=== PATIENT | female | born 1980 | race Caucasian/White ===

== ENCOUNTER 2017-06-16 12:15 | Emergency (ER) | payer MEDICAID, SELFPAY ==
[2017-06-16 12:17] VITALS: BP 134/80; PULSE 115; RESP 20; TEMP 36.6; O2SAT 100; BMI 19.3
--- NOTE | 2017-06-16 12:49 | ED.VISSUMM ---
- ER Visit Summary Date of Service: 06/16/17 Chief Complaint: Back pain History of Present Illness: The patient is a 37 F who presents to the emergency department with back pain. The patient has had the same pain for the past 3 months. She has been seeing neurology. She did have outpatient MRIs of the cervical spine, thoracic spine, and lumbar spine. She states that she is currently on Neurontin, tizanidine, and temazepam. She feels like it is not helping the pain. She has had a persistent burning pain across her back. She states it radiates everywhere. She has had no problems with bowel or bladder. She denies any fevers or chills. She denies any new trauma. She states that she is frustrated because she cannot get any answers and cannot find anything that helps her pain. Physical Examination: Afebrile, vitals unremarkable. Well-appearing female no acute distress. Head is normocephalic, atraumatic. Pupil's equal round reactive, extraocular muscles intact. Neck supple. Heart regular rate and rhythm. Lungs clear, chest nontender. Abdomen soft, nontender, nondistended. No pulsatile mass. Patient has paraspinal tenderness in the lumbar and thoracic area, but no bony tenderness. Straight leg raise is negative bilaterally. 2+ symmetric lower extremity pulses. 2+ reflexes both upper and lower extremities. No clonus. No weakness of dorsiflexion, plantar flexion, or extensor hallucis longus bilaterally. Test Results: [] Emergency Department Course and Treatment: I did review the patient's outpatient MRIs. They are relatively unremarkable. She has been dealing with this pain for months now. She is basically maxed out on Neurontin. They have tried multiple other medications which she has not found any improvement with. She has no red flag symptoms. She describes a diffuse burning across her back which is her normal pain. She states that it has been out of control. I did not feel that repeat imaging or lab work would be necessary as this is similar symptoms the patient has had since before January 2017. She has a benign examination with no evidence of discitis, epidural abscess, cauda equina, or other dangerous process. The patient was treated with Toradol and Norflex with some improvement. She was still having pain. She was given oral [place]. I did review [facility] was unremarkable for opiate analgesics. I will give the patient 2 days of acute pain control. I did veterans rehabilitation counselor her she needs to discuss with neurology the next step in the workup and control of her symptoms. The patient will be discharged home. Treatment Plan: [] Disposition: [] Impression: 1. Thoracic radiculitis 2. Exacerbation of chronic pain This note was generated with [employer] dictation software. It may contain incorrect words, spelling, and punctuation that were not noted in review of the chart prior to signing ED Disposition - Plan for ED Patient: Chief Complaint: Back Instructions: ED Spasm Back No Trauma Prescriptions: Hydrocodone Bitart/Apap 5-325 [[place] 5/325] 1 tab PO Q6H PRN PRN 3 Days #12 tab PRN Reason: Pain Docusate Sodium [Colace] 100 mg PO DAILY #20 cap Referrals: Azeem Woodruff III, MD [Primary Care Provider] -
[2017-06-16] MEDS: Ketorolac 30 MG/ML Syringe IM (13:07)
[2017-06-16] MEDS: Orphenadrine 60 MG/2 ML Ampul IM (13:07)
[2017-06-16] MEDS: HYDROcodone Bitartrate/Apap 5/325 Tablet PO (13:33)
[2017-06-16 13:56] VITALS: BP 137/83; PULSE 97; RESP 16; O2SAT 99
== END 2017-06-16 13:58 | disposition home or self-care (01) ==
LOC: ED 12:38
PROVIDERS: Emergency Provider Emergency Medicine; Family Provider Family Medicine; PCP Family Medicine
DX: M54.14 Radiculopathy, thoracic region (principal); G89.29 Other chronic pain; Z87.891 Personal history of nicotine dependence
CPT/HCPCS: 99283

== ENCOUNTER 2018-06-27 05:05 | Emergency (ER) | payer MEDICAID, SELFPAY ==
[2018-06-27 05:06] VITALS: BP 112/79; PULSE 74; RESP 18; TEMP 36.7; O2SAT 100; BMI 21.2
--- NOTE | 2018-06-27 05:39 | ED.VISSUMM ---
- ER Visit Summary Date of Service: 06/27/18 Chief Complaint: Eye pain History of Present Illness: The patient is a 38 F who presents with right eye pain. She had fallen asleep. She woke up may be 30 minutes later with sudden severe right eye pain which she describes as burning and stabbing. No history of injury. She does not work glasses or contact lenses. She states that she had a foreign body sensation and she was trying to irrigate her eye out at home. No recent illness. No fever chest pain shortness of breath vomiting diarrhea Physical Examination: Afebrile vitals are normal Went into the room the patient was sitting in a darkened room covering her right eye. She complains of worsening pain when she attempts to open it. Pupils are equally round and reactive to light normal accommodation Extraocular motion intact no palsies Right eyelid everted no foreign body visualized Diffuse conjunctival injection Slit-lamp examination with tetracaine and fluorescein does show a large linear corneal abrasion horizontally across the lower cornea does involve the visual axis over the pupil Test Results: Slit-lamp examination as above Emergency Department Course and Treatment: Eyelids were everted no foreign body. Tetracaine instilled in the right eye with marked improvement of symptoms. Slit-lamp examination does reveal a corneal abrasion. She was given ophthalmic bacitracin here and instructed on its use. She was given a [place] for acute pain control as well as a prescription for short course of the same. She was referred to ophthalmology for follow-up and understands to return for new or worsening symptoms. Patient discharged. Treatment Plan: [] Disposition: Discharge Impression: Corneal abrasion This note was generated with [employer] dictation software. It may contain incorrect words, spelling, and punctuation that were not noted in review of the chart prior to signing ED Disposition - Plan for ED Patient: Referrals: Azeem Woodruff III, MD [Primary Care Provider] -
--- NOTE | 2018-06-27 05:42 | ED.DCSUM_ITS ---
- ER Visit Summary Date of Service: 06/27/18 Chief Complaint: Eye pain History of Present Illness: The patient is a 38 F who presents with right eye pain. She had fallen asleep. She woke up may be 30 minutes later with sudden severe right eye pain which she describes as burning and stabbing. No history o f injury. She does not work glasses or contact lenses. She states that she had a foreign body sensation and she was trying to irrigate her eye out at home. No recent illness. No fever chest pain shortness of breath vomiting diarrhea Physical Examination: Afebrile vitals are normal Went into the room the patient was sitting in a darkened room covering her right eye. She complains of worsening pain when she attempts to open it. Pupils are equally round and reactive to light normal accommodation Extraocular motion intact no palsies Right eyelid everted no foreign body visualized Diffuse conjunctival injection Slit-lamp examination with tetracaine and fluorescein does show a large linear corneal abrasion horizontally across the lower cornea does involve the visual axis over the pupil Test Results: Slit-lamp examination as above Emergency Department Course and Treatment: Eyelids were everted no foreign body. Tetracaine instilled in the right eye with marked improvement of symptoms. Slit-lamp examination does reveal a corneal abrasion. She was given ophthalmic bacitracin here and instructed on its use. She was given a [place] for acute pain control as well as a prescription for short course of the same. She was referred to ophthalmology for follow-up and understands to return for new or worsening symptoms. Patient discharged. Treatment Plan: [] Disposition: Discharge Impression: Corneal abrasion This note was generated with [employer] dictation software. It may contain incorrect words, spelling, and punctuation that were not noted in review of the chart prior to signing ED Disposition - Plan for ED Patient: Referrals: Azeem Woodruff III, MD [Primary Care Provider] -
--- NOTE | 2018-06-27 05:42 | ED.DEP ---
ED Disposition - Plan for ED Patient: Instructions: ED Eye Injury Corneal Abrasion Prescriptions: Hydrocodone Bitart/Apap 5-325 [[place] 5MG-325MG] 1 tab PO Q6H PRN PRN 3 Days #10 tab PRN Reason: Pain Referrals: Azeem Woodruff III, MD [Primary Care Provider] - Josue Lee MD [STAFF PHYSICIAN] -
[2018-06-27] MEDS: Fluorescein 1 MG STRIP 1 STRIP RIGHT EYE (05:49)
[2018-06-27] MEDS: Tetracaine 0.5% Ophthalmic Bottle 1 DRP RIGHT EYE (05:49)
[2018-06-27] MEDS: HYDROcodone Bitartrate/Apap 5/325 Tablet PO (05:50)
[2018-06-27 05:51] VITALS: BP 115/65; PULSE 67; RESP 16; O2SAT 98
== END 2018-06-27 05:59 | disposition home or self-care (01) ==
PROVIDERS: Emergency Provider Emergency Medicine; Family Provider Family Medicine; PCP Family Medicine
DX: S05.01XA Injury of conjunctiva and corneal abrasion without foreign body, right eye, initial encounter (principal); X58.XXXA Exposure to other specified factors, initial encounter; Y93.9 Activity, unspecified; Y92.89 Other specified places as the place of occurrence of the external cause; Y99.8 Other external cause status; M79.7 Fibromyalgia; G89.29 Other chronic pain; Z72.0 Tobacco use
CPT/HCPCS: 99284

== ENCOUNTER 2021-05-21 16:43 | Emergency (ER) | payer MEDICAID, SELFPAY ==
[2021-05-21 16:43] VITALS: BP 142/94; PULSE 77; RESP 15; TEMP 36; O2SAT 96; BMI 27.6
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
[2021-05-21] MEDS: Ondansetron 4 MG/2 ML Vial IV (17:37)
[2021-05-21] MEDS: Morphine 4 MG/ML Syringe IV (17:37)
[2021-05-21 18:05] LABS: Absolute Lymphocyte Count 1.95 X10^3/uL (0.83-4.51); Absolute Neutrophil Count 5.7 X10^3/uL (2.0-7.7); Basophil# 0.03 X10^3/uL; Basophil% 0.4 % (0-1); Eosinophil# 0.11 X10^3/uL; Eosinophils% 1.3 % (0-5); Hemoglobin 14.9 g/dL (12.0-15.0); Lymphocyte # 1.95 X10^3/ul (0.83-4.51); Lymphocyte % 23.3 % (19-41); Mean Corp Hgb Conc 33.9 g/dL (32-36); Mean Corpuscular Volume 94.4 fL (81-99); Mean Platelet Vol. 10.4 fl (6.2-12.0); Monocyte# 0.56 X10^3/uL; Monocyte% 6.7 % (0-10); NRBC Flagged by Analyzer 0 % (0-5); Neutrophil % 68.1 % (47-70); Platelet Count 337 K/mm3 (150-450); RBC Distribution Width CV 12.9 % (11.6-14.6); RBC Distribution Width SD 44.5 fl (35.1-43.9); Red Blood Count 4.66 M/mm3 (4.2-5.4); White Blood Count 8.4 K/mm3 (4.4-11.0)
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
[2021-05-21 18:25] LABS: Anion Gap 5 (5-15); BUN 12 mg/dL (7-18); BUN/Creat Ratio 14.5 RATIO (10-20); Calcium,Total 9.5 mg/dL (8.5-10.1); Chloride 105 mmol/L (98-107); Creatinine, Serum 0.83 mg/dL (0.55-1.02); EST Glomerular Filtration Rate 80 mL/min (>60); Est Glom Filt Rate - Afr Amer 97 mL/min (>60); Estimated Creatinine Clearance 86.62 ml/min; Glucose 83 mg/dL (74-106); Potassium 3.8 mmol/L (3.5-5.1); Sodium Level 138 mmol/L (136-145)
[2021-05-21 18:41] VITALS: BP 135/90; PULSE 89; RESP 15; O2SAT 99
== END 2021-05-21 18:42 | disposition home or self-care (01) ==
PROVIDERS: Emergency Provider Emergency Medicine; Visit Provider Emergency Medicine
DX: S29.9XXA Unspecified injury of thorax, initial encounter (principal); S39.91XA Unspecified injury of abdomen, initial encounter; V43.53XA Car driver injured in collision with pick-up truck in traffic accident, initial encounter; Y93.9 Activity, unspecified; Y92.9 Unspecified place or not applicable; F17.210 Nicotine dependence, cigarettes, uncomplicated; M79.7 Fibromyalgia; Z79.899 Other long term (current) drug therapy
CPT/HCPCS: 74177; 80048; 85025; 93005; 96374; 96375; 99283; Q9967; A4216; J2405

== ENCOUNTER 2021-05-27 13:59 | Emergency (ER) | payer MEDICAID, SELFPAY ==
[2021-05-27 14:00] VITALS: BP 129/98; PULSE 71; RESP 21; TEMP 36.7; O2SAT 98; BMI 27.8
--- NOTE | 2021-05-27 15:54 | RAD_ITS ---
STUDY: X-RAY - ABDOMEN/PELVIS REASON FOR EXAM: Female, 41 years old. Constipation. No bowel movement for 1 week. TECHNIQUE: Two AP supine views of the abdomen and pelvis. COMPARISON: None. FINDINGS: Normal visualized lung bases. There is an unremarkable bowel gas pattern. There is no demonstrated free abdominal air. Question hepatomegaly. The splenic and renal contours appear normal. Normal soft tissue structures. There is a mild levoscoliosis of the lumbar spine. RAD/Abdomen Single View IMPRESSION: 1. No evidence of acute intra-abdominal process. 2. Question hepatomegaly. Electronically Signed: Landen Carlson DO at 16:25 EST Tel [phone], Service support ,
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
== END 2021-05-27 17:17 | disposition home or self-care (01) ==
PROVIDERS: Emergency Provider Emergency Medicine; Visit Provider Emergency Medicine
DX: K59.00 Constipation, unspecified (principal); F17.210 Nicotine dependence, cigarettes, uncomplicated
CPT/HCPCS: 74018; 99284

== ENCOUNTER 2024-08-17 12:43 | Inpatient (IN) | payer SELFPAY ==
[2024-08-17] VITALS (27 sets, daily range): BP systolic 86–158; BP diastolic 54–145; PULSE 49–69; RESP 14–28; TEMP 34.7–36.4; O2SAT 96–100; BMI 33.0; BMI 31.2
[2024-08-17] MEDS: Naloxone 2 MG/2 ML Syringe IV (12:47)
--- NOTE | 2024-08-17 12:50 | EX.ED.DYSGE1 ---
HPI History of Present Illness Chief Complaint: Overdose Informant: family and EMS Narrative Narrative: 44-year-old female presenting via EMS with the report of intentional drug overdose. EMS was called to the house after family received some text messages concerning for mental health and potential for suicidal ideation. They found the patient unresponsive on the floor with multiple medications around her. They brought some medications with her which include trazodone tizanidine and [place]. It is unclear of how much she took. There is a report of potential glass of wine. Family notes that she has had some lows recently but has been refusing to speak with anybody about her mental health. Patient herself cannot provide any meaningful information. EMS notes that the text of family was about an hour before arriving here in the department. [facility] Medical History Suicide attempt Depression Anxiety Home Medications ?Medication ?Instructions ?Recorded ?Last Taken ?Type tizanidine 4 mg tablet (Zanaflex) 4 mg PO Q8H PRN PRN Pain 11/03/13 11/13/15 History gabapentin 300 mg capsule 900 cap PO TID 10/24/15 11/13/15 History temazepam 30 mg capsule 30 mg PO QHS PRN PRN INSOMNIA, 10/24/15 11/13/15 History SLEEP acetaminophen 500 mg tablet 1,000 mg (2 x 500 mg) PO Q8 08/11/16 Unknown Rx Allergy/AdvReac Type Severity Reaction Status Date / Time duloxetine (From Cymbalta) Allergy Nausea Verified 05/27/21 16:15 Surgical History History of arthroscopy of right knee History of ankle surgery Social History household members: significant other and other details: States significant other is status postvasectomy Smoking Status: Smoker, status unknown substance use type: does not use ROS ROS ED Review of Systems ROS Unobtainable: due to mental status EXAM Physical Exam Const Vital Signs: 08/17/24 12:44 08/17/24 13:05 08/17/24 13:10 Temperature 96.9 F L Temperature Source Temporal Pulse Rate 53 L 61 Respiratory Rate 18 Respiratory Effort Mechanically Ventilated Respiratory Depth Normal Respiratory Pattern Normal Blood Pressure 86/54 L Blood Pressure Mean 64 Pulse Ox 96 100 99 Oxygen Delivery Method Room Air Mechanical Ventilator Fraction of Inspired Oxygen (FIO2) 75 08/17/24 13:10 08/17/24 13:14 08/17/24 13:20 Temperature 96 F L Temperature Source Core Pulse Rate 61 62 64 Respiratory Rate 14 14 17 Respiratory Effort Respiratory Depth Respiratory Pattern Blood Pressure 95/72 125/91 H Blood Pressure Mean 79 102 Pulse Ox 99 100 100 Oxygen Delivery Method Mechanical Ventilator Mechanical Ventilator Fraction of Inspired Oxygen (FIO2) 75 08/17/24 13:30 08/17/24 14:00 08/17/24 14:18 Temperature Temperature Source Pulse Rate 65 57 L 61 Respiratory Rate 15 26 H 28 H Respiratory Effort Respiratory Depth Respiratory Pattern Blood Pressure 104/85 H 158/145 H 124/91 H Blood Pressure Mean 91 149 102 Pulse Ox 100 98 99 Oxygen Delivery Method Mechanical Ventilator Fraction of Inspired Oxygen (FIO2) 08/17/24 14:29 Temperature 97.6 F L Temperature Source Pulse Rate 69 Respiratory Rate 28 H Respiratory Effort Respiratory Depth Respiratory Pattern Blood Pressure 115/90 H Blood Pressure Mean 98 Pulse Ox 98 Oxygen Delivery Method Fraction of Inspired Oxygen (FIO2) Positive well nourished and well developed General Appearance ED: well developed HEENT Reports normocephalic, head/scalp atraumatic and moist mucous membranes Eyes EOMs intact bilaterally Eyes Narrative: Pupils are 2 mm bilaterally. There is a gag reflex though delayed and blunted. Neck no lymphadenopathy, supple and no JVD Resp normal respiratory effort and clear to auscultation bilaterally Cardio regular rate, regular rhythm and no murmurs Rate: bradycardia GI normal to inspection, nondistended, normoactive bowel sounds and non-tender Palpation: soft Back/Spine no CVA tenderness and normal ROM Extremity normal to inspection General Extremety ED: Negative for edema General Extremity: Negative for edema Neuro [place] Coma Scale: document GCS findings To Pain Localizes to Pain None 8 Psych Psych Narrative: Unable to assess Mood & Affect: tearful Skin no rashes or lesions noted and no wounds MDM MDM MDM Narrative Medical decision making narrative: Differential diagnosis includes but not limited to suicide attempt intentional drug overdose metabolic acidosis alkalosis drug-induced hypotension drug-induced bradycardia hypercarbia hypoxia anoxic brain injury aspiration toxic ingestion acute kidney injury After the initial examination and no response to administered IV Narcan decision was made to intubate the patient for airway protection based on the GCS of 8 and blunted gag reflex. Patient underwent successful RSI using etomidate and rocuronium placing a 7-1/2 endotracheal tube on the first attempt without any difficulty. Equal breath sounds bilaterally good color change on capnography. OG tube was placed. Because of the hypotension and concern for further hypotension with sedation for mechanical ventilation a right IJ central line was placed using ultrasound guidance and sterile condition using the modified Salinger technique. This was obtained in the first attempt without any difficulty. Sutured in place. Dark red nonpulsatile blood was obtained. Good push pull. My independent interpretation of the postprocedural x-ray is right mainstem intubation. Adequate placement of central line with no pneumothorax. Endotracheal tube was pulled back by 3 cm Initial ABG shows a pH of 7.33 PaCO2 36.1 PaO2 of 210.1 HCO3 19.3 EKG is a sinus bradycardia at a rate of 51 with some QT prolongation. Basic blood work shows a hemoglobin 11.9 normal creatinine normal sodium and potassium. Lactic acid is elevated 2.7 alcohol level is 181. Urine toxicology positive for cannabinoids test is negative normal LFTs. CT brain shows no acute findings. Patient was given propofol for sedation. Family was updated several times by this physician both in the waiting room and at the bedside. Plan of care will be admission to the ICU. History & Record Review Discussion w/independent historian: EMS personnel, Family and Other (Police) Lab Data Attestation: I reviewed the patient's lab results. Labs: Laboratory Results - last 24 hr 08/17/24 08/17/24 08/17/24 12:51 13:15 13:28 WBC 6.4 RBC 3.75 L Hgb 11.9 L Hct 35.3 L MCV 94.1 MCH 31.7 MCHC 33.7 RDW Std Deviation 43.3 RDW Coeff of Adrianna 12.6 Plt Count 299 MPV 11.0 Immature Gran % (Auto) 0.300 Neut % (Auto) 68.7 Lymph % (Auto) 22.4 [place] % (Auto) 6.1 Eos % (Auto) 2.2 Baso % (Auto) 0.3 Absolute Neuts (auto) 4.4 Absolute Lymphs (auto) 1.43 Nucleated RBC % 0 PT Cancelled INR Cancelled APTT Cancelled Sodium 140 Potassium 3.7 Chloride 109 H Carbon Dioxide 18.6 L Anion Gap 13 BUN 10 Creatinine 0.59 L Estim Creat Clear Calc 108.39 Est GFR (MDRD) Non-Af 113 BUN/Creatinine Ratio 16.8 Glucose 106 H Lactic Acid 2.7 H* Calcium 8.2 Total Bilirubin 0.21 Direct Bilirubin < 0.08 AST 18 ALT 6 Alkaline Phosphatase 34 L Total Creatine Kinase 44 Troponin T High Sens < 6 Total Protein 6.1 Albumin 3.7 Globulin 2.4 Triglycerides 315 H Lipase 22 Serum , Qual NEGATIVE Urine Color Straw Urine Clarity Clear Urine pH 6.0 Ur Specific [place] 1.015 Urine Protein 15 H Urine Glucose (UA) Normal Urine Ketones Negative Urine Occult Blood 10 H Urine Nitrite Negative Urine Bilirubin Negative Urine Urobilinogen Normal Ur Leukocyte Esterase Negative Urine RBC 0-5 SEEN Urine WBC 0 SEEN Ur Squamous Epith Cells 0 SEEN Urine Bacteria 0 SEEN Urine Mucus 0 SEEN Salicylates < 0.5 L Urine Opiates Screen NEGATIVE U Buprenorphine Qual NEGATIVE Ur Oxycodone Screen NEGATIVE Urine Methadone Screen NEGATIVE Urine Fentanyl Screen NEGATIVE Acetaminophen < 5.0 L Ur Barbiturates Screen NEGATIVE Ur Phencyclidine Scrn NEGATIVE Ur Amphetamines Screen NEGATIVE U Benzodiazepines Scrn NEGATIVE Urine Cocaine Screen NEGATIVE U Cannabinoids Screen PRESUMPTIVE POSITIVE Ethyl Alcohol 181.0 H ABG Data ABG results: ABG 08/17/24 13:23 Specimen Type ART Sample Site L Radial pH 7.34 L Bicarbonate Actual 19.3 L Total CO2 20 Base Excess -7 L O2 Saturation 100 H O2 % 50.0 ABG pCO2 36.1 ABG pO2 210 H Jorge Test Positive Respiration Rate 14 O2 Delivery Device ET Tube Vent Mode AC Tidal Volume 450.0 POC PEEP 5 Radiography Diagnostic Testing: Clinical Impression(s) from Imaging Studies Chest X-Ray 08/17/24 13:25 IMPRESSION: 1. ET tube is in the right main bronchus. Retraction is recommended. 2. Pulmonary venous congestion. Reading Location: [facility] Brain CT 08/17/24 13:42 IMPRESSION: No acute intracranial hemorrhage, midline shift or mass effect. If symptoms persist, further evaluation with MRI is recommended. Reading Location: [facility] EKG Initial EKG: Attestation: I personally reviewed and interpreted this EKG as follows: Comments: Sinus bradycardia ventricular rate of 51 bpm Management Discussion w/another healthcare provider: Hospitalist (Dr Fontanez) Critical Care Time Critical Care Time: Yes Critical care time (excluding procedures): 30-74 minutes (35), Including time spent:, Discussing w/Patient &/or Family/Offset Platemaker, Discussing w/Consultants, Arranging Admission or Transfer and Performing Direct Patient Care at Bedside Discharge Plan Dx/Rx/DC Orders Clinical Impression: Drug overdose, intentional, Respiratory failure, Acute hypotension, Alcohol intoxication Disposition Disposition: Acute Care Hospital [facility] Discharge Date/Time: 08/17/24 15:18
--- NOTE | 2024-08-17 12:51 | EKG12_ITS ---
Test Reason : OD Blood Pressure : */* mmHG Vent. Rate : 51 BPM Atrial Rate : 51 BPM P-R Int : 162 ms QRS Dur : 82 ms QT Int : 496 ms P-R-T Axes : 39 34 30 degrees QTcB Int : 457 ms Sinus bradycardia Otherwise normal ECG Confirmed by Lonny Slater ([id number]), international editorial producer MARY PEARL ([id number]) on 08/20/2024 6:50:50 AM Referred By: Confirmed By: Lonny Slater
[2024-08-17] MEDS: 0.9% Normal Saline (1000mL) 1,000 ML 1000 ML IV (12:55)
[2024-08-17] MEDS: Etomidate 20 MG/10 ML Vial IV (13:01)
[2024-08-17] MEDS: Rocuronium Bromide 50 MG/5 ML Vial IV (13:02)
[2024-08-17] MEDS: Propofol 10MG/Ml 1,000 MG/100 ML Bottle 4.5 MG CONT INF (13:08)
[2024-08-17] MEDS: 0.9% Normal Saline (1000mL) 1,000 ML 250 ML IV (13:19)
--- NOTE | 2024-08-17 13:25 | RAD_ITS ---
EXAM: XR Chest, 1 View CLINICAL INDICATION: INTUBATION TECHNIQUE: Frontal view of the chest. COMPARISON: No relevant prior studies available. FINDINGS: LUNGS AND PLEURAL SPACES: Pulmonary venous congestion. No consolidation. No pneumothorax. HEART: Unremarkable. No cardiomegaly. MEDIASTINUM: Unremarkable. Normal mediastinal contour. BONES/JOINTS: Unremarkable. No acute fracture. TUBES, LINES AND DEVICES: ET tube is in the right main bronchus. Retraction is recommended. Enteric tube tip cannot be seen but is below the diaphragm. RAD/Chest 1 View (Portable) IMPRESSION: 1. ET tube is in the right main bronchus. Retraction is recommended. 2. Pulmonary venous congestion. Reading Location: [facility]
[2024-08-17 13:27] LABS: Allen Test Positive; Base Excess -7 mmol/L (-2 to +2); Bicarbonate 19.3 mmol/L (22-26); Blood Gas Specimen Type ART; Mode AC; O2 Delivery Device ET Tube; PEEP 5; PO2 210 mmHG (75-100); RR 14; SITE L Radial; SO2 100 % (95-99); Total Carbon Dioxide 20 mmol/L; pCO2 36.1 mmHg (35-45); pH 7.34 (7.35-7.45)
[2024-08-17 13:37] LABS: Absolute Lymphocyte Count 1.43 X10^3/uL (0.83-4.51); Absolute Neutrophil Count 4.4 X10^3/uL (2.0-7.7); Basophil# 0.02 X10^3/uL; Basophil% 0.3 % (0-1); Eosinophil# 0.14 X10^3/uL; Eosinophils% 2.2 % (0-5); Hematocrit 35.3 % (37-47); Hemoglobin 11.9 g/dL (12.0-15.0); Lymphocyte # 1.43 X10^3/ul (0.83-4.51); Lymphocyte % 22.4 % (19-41); Mean Corp Hgb Conc 33.7 g/dL (32-36); Mean Corpuscular Hgb 31.7 pg (27.0-32.0); Mean Corpuscular Volume 94.1 fL (81-99); Monocyte# 0.39 X10^3/uL; Monocyte% 6.1 % (0-10); NRBC Flagged by Analyzer 0 % (0-5); Neutrophil # 4.39 X10^3/uL (2.7-7.7); Neutrophil % 68.7 % (47-70); Platelet Count 299 K/mm3 (150-450); RBC Distribution Width CV 12.6 % (11.6-14.6); RBC Distribution Width SD 43.3 fl (35.1-43.9); Red Blood Count 3.75 M/mm3 (4.2-5.4); White Blood Count 6.4 K/mm3 (4.4-11.0)
[2024-08-17 13:40] LABS: Bacteria 0 SEEN /hpf (None Seen); Mucous, Urine 0 SEEN /hpf (<or=2+); Squamous Epithelial Cells - UA 0 SEEN /hpf (5-10); White Blood Cells 0 SEEN /hpf (0-5)
--- NOTE | 2024-08-17 13:42 | CT_ITS ---
EXAM: CT Head Without Intravenous Contrast CLINICAL INDICATION: AMS TECHNIQUE: Axial computed tomography images of the head/brain without intravenous contrast. This CT exam was performed using one or more of the following dose reduction techniques: automated exposure control, adjustment of the mA and/or kV according to patient size, and/or use of iterative reconstruction technique. COMPARISON: No relevant prior studies available. FINDINGS: BRAIN AND EXTRA-AXIAL SPACES: No acute intracranial hemorrhage, midline shift or mass effect. If symptoms persist, further evaluation with MRI is recommended. No significant white matter disease. BONES/JOINTS: Unremarkable. No acute fracture. SOFT TISSUES: Unremarkable. SINUSES: Unremarkable as visualized. No acute sinusitis. MASTOID AIR CELLS: Unremarkable as visualized. No mastoid effusion. CT/Brain/Head without Contrast IMPRESSION: No acute intracranial hemorrhage, midline shift or mass effect. If symptoms per sist, further evaluation with MRI is recommended. Reading [facility]
--- NOTE | 2024-08-17 14:05 | ED.RN ---
this nurse titrated pt iv propofol to 15 per titration protocol. pt still appearing uncomoftable d/t vital signs elevated and pt is moving despite being in restraints. dr. lisa de la rosa MD ordered for increase in propfolol to 25mcg.
[2024-08-17 14:09] LABS: Troponin T High Sensitivity < 6 ng/L (<=14)
[2024-08-17 14:12] LABS: Lipase 22 U/L (13-75)
[2024-08-17 14:15] LABS: AST(SGOT) 18 U/L (<=31); Acetaminophen (Tylenol) Level < 5.0 ug/mL (8.0-19.0); Alanine Aminotransfer ALT/SGPT 6 U/L (<=34); Albumin, Serum 3.7 g/dL (3.5-5.0); Alkaline Phosphatase 34 U/L (35-104); Anion Gap 13 (5-15); BUN 10 mg/dL (4-19); BUN/Creat Ratio 16.8 RATIO (10-20); Bilirubin, Direct < 0.08 mg/dL (0.00-0.30); Calcium,Total 8.2 mg/dL (7.6-11.0); Carbon Dioxide 18.6 mmol/L (21.0-32.0); Chloride 109 mmol/L (98-108); Creatinine, Serum 0.59 mg/dL (0.70-1.20); EST Glomerular Filtration Rate 113 (>60); Estimated Creatinine Clearance 108.39 ml/min (50-250); Globulin 2.4 g/dL (2.2-4.2); Glucose 106 mg/dL (70-99); Potassium 3.7 mmol/L (3.3-5.1); Protein, Total 6.1 g/dL (5.9-8.4); Salicylate < 0.5 mg/dL (2.8-20.0); Sodium Level 140 mmol/L (133-145); Total Bilirubin 0.21 mg/dL (0.00-1.30)
[2024-08-17] MEDS: Midazolam 5 MG/ML Syringe IV (14:15)
[2024-08-17 14:16] LABS: Internal QC Validated? YES +Cl - CLEAR BKGD; Pregnancy, Serum, hCG Quali. NEGATIVE Negative; Record Kit Lot#, Serum Preg. 929381
[2024-08-17 14:18] LABS: Amphetamine Urine NEGATIVE (<1000 ng/mL); Barbiturate Urine NEGATIVE (< 200 ng/mL); Benzodiazepine Urine NEGATIVE (< 200 ng/mL); Buprenorphine Urine NEGATIVE (< 200 ng/mL); Cocaine Urine NEGATIVE (< 300 ng/mL); Fentanyl, Urine NEGATIVE; Methadone Urine NEGATIVE (< 300 ng/mL); Opiates Urine NEGATIVE (< 300 ng/mL); Oxycodone, Urine NEGATIVE (< 100 ng/mL); PCP Urine NEGATIVE (< 25 ng/mL); THC Urine PRESUMPTIVE POSITIVE (< 50 ng/mL)
[2024-08-17 14:21] LABS: Lactic Acid 2.7 mmol/L (0.0-2.0)
[2024-08-17 14:23] LABS: Color, Urine Straw (Yellow); Glucose, Dipstick Normal (Normal); Ketone-Dipstick Negative (Negative); Leukocyte Esterase-Dipstick Negative /ul (Negative); Nitrite-Dipstick Negative (Negative); Occult Blood-Urine 10 /ul (Negative); Protein-Dipstick 15 mg/dl (Negative); Specific Gravity, Urine 1.015 (1.002-1.030); Urine Bilirubin Dipstick Negative (Negative); Urine Clarity Clear (Clear); Urine Urobilinogen Normal (Normal)
[2024-08-17 14:25] LABS: CPK Total, Creatine Kinase 44 U/L (24-195); Triglycerides 315 mg/dL
--- NOTE | 2024-08-17 14:26 | CM.ED ---
Social work Reason for referral: overdose Referral source: Guadalupe RN in triage This SW received a referral for patient regarding a mental health assessment needing completed. This SW arrived at patient's room moments later to find that patient was being intubated. Per triage notes, patient took an unknown amount of Tizanidine, [place], and Trazodone. Patient's daughter, Shelley, was the only family present in the ED waiting room at this time. Per nursing, Shelley was not aware of patient's intubation. This SW went out to ED waiting room, introducing self and role at [facility] to Shelley. Shelley showed this SW a text that patient sent to patient's 4 children at 1130 today that inferred patient's suicidality. Shelley stated texting patient separately and not hearing back which is when Shelley states Shelley knew something was wrong. Dr. Arcos arrived to speak with Shelley and update on patient's current condition. Patient's son, Dann, arrived shortly after and heard from Dr. Arcos. SW updated Dann on what was said about patient's condition prior to Dann's arrival and provided empathic support as needed. Shelley and Dann discussed patient's desire to hold stuff inside and tendency to not talk with anyone about how patient is feeling. Shelley stated knowing patient had been struggling recently, but Shelley stated not expecting this. Patient's , Lonny Dumont, arrived and SW updated based on Dr. Arcos's update. Patient and Lonny have reportedly been since December 2023. Lonny reported being away from patient for maybe two hours running errands (taking dog to elementary school registrar and making a dentist appointment). Lonny stated patient had been doing dishes when Lonny left the home this morning. Lonny stated medication bottles had been brought to [facility] ED by police and one was empty that I found on the stairs. Lonny requested to speak with patient's doctor and Dr. Arcos was provided this request by this SW. This SW received permission to bring patient's family members back to patient's room after patient received imaging. Patient's family members were prepared with what they may see and SW remained in room while patient's family was bedside. Lonny walked out of room at one point and was observed being emotional. Shelley was observed staying composed while Dann was observed being tearful. Lonny left the ED about 1415 in order to get the dog from the groomer after Libertad RN answered questions regarding patient's intubation. SW remained available as needed for emotional support until patient was transitioned to the ICU. Handoff to acute SW team via email that patient would need mental health assessment once off the ventilator. Julianne Miller, ACTIVE DIRECTORY ADMINISTRATOR, CAMPGROUND CARETAKER
[2024-08-17 14:57] LABS: Red Blood Cells-Urine 0-5 SEEN /hpf (0-5)
--- NOTE | 2024-08-17 16:11 | PCM.HP.STD ---
HPI - General General Date of Admission: 08/17/24 Date of Service: 08/17/24 Chief Complaint: Intentional drug overdose HPI Narrative SONI JOHNSON, is a 44 F who presents to the emergency room at [facility] after being brought in by squad after her family received some text messages concerning for mental health and potential suicidal ideation. Patient was found unresponsive on her floor with multiple medications around her. It is unclear how much medication she took or which medication she took. Patient has a history of mental illness but according to of her family members has never tried to intentionally overdose in the past. Evaluation of the patient in the emergency room revealed her to be responsive to deep painful stimulation only, decision was made to intubate the patient for airway protection based on a blunted gag reflex and a GCS of 8. Basic blood work showed a hemoglobin of 11.9, normal creatinine, normal sodium and potassium. Lactic acid was elevated at 2.7, alcohol level was elevated at 181. Urine toxicology was positive for cannabinoids, test was negative, CT of the brain showed no acute findings. Patient was placed on propofol for sedation. Patient was given IV fluids in the emergency room and will be admitted to ICU for further care. [facility] Medical History (Updated 08/17/24 @ 16:05 by Mabel Woodruff) Alcohol abuse Smoker Migraines Suicide attempt Depression Anxiety Home Medications ?Medication ?Instructions ?Recorded ?Last Taken ?Type NK 08/17/24 Unknown History Allergy/AdvReac Type Severity Reaction Status Date / Time duloxetine (From Cymbalta) Allergy Nausea Verified 05/27/21 16:15 Surgical History History of arthroscopy of right knee History of ankle surgery Social History household members: significant other and other details: States significant other is status postvasectomy Smoking Status: Current every day smoker tobacco type: cigarettes substance use type: does not use ROS Review of Systems ROS Unobtainable: due to endotracheal tube, due to mental condition and due to mental status Vital Signs Vital Signs Vital Signs: 08/17/24 12:44 08/17/24 13:05 08/17/24 13:10 Temperature 96.9 F L Temperature Source Temporal Pulse Rate 53 L 61 Respiratory Rate 18 Respiratory Effort Mechanically Ventilated Respiratory Depth Normal Respiratory Pattern Normal Blood Pressure 86/54 L Blood Pressure Mean 64 Pulse Ox 96 100 99 Oxygen Delivery Method Room Air Mechanical Ventilator Fraction of Inspired Oxygen (FIO2) 75 08/17/24 13:10 08/17/24 13:14 08/17/24 13:20 Temperature 96 F L Temperature Source Core Pulse Rate 61 62 64 Respiratory Rate 14 14 17 Respiratory Effort Respiratory Depth Respiratory Pattern Blood Pressure 95/72 125/91 H Blood Pressure Mean 79 102 Pulse Ox 99 100 100 Oxygen Delivery Method Mechanical Ventilator Mechanical Ventilator Fraction of Inspired Oxygen (FIO2) 75 08/17/24 13:30 08/17/24 14:00 08/17/24 14:18 Temperature Temperature Source Pulse Rate 65 57 L 61 Respiratory Rate 15 26 H 28 H Respiratory Effort Respiratory Depth Respiratory Pattern Blood Pressure 104/85 H 158/145 H 124/91 H Blood Pressure Mean 91 149 102 Pulse Ox 100 98 99 Oxygen Delivery Method Mechanical Ventilator Fraction of Inspired Oxygen (FIO2) 08/17/24 14:29 08/17/24 14:50 08/17/24 15:00 Temperature 97.6 F L Temperature Source Pulse Rate 69 49 L 50 L Respiratory Rate 28 H 22 H 17 Respiratory Effort Respiratory Depth Respiratory Pattern Normal Blood Pressure 115/90 H 110/90 H Blood Pressure Mean 98 96 Pulse Ox 98 98 98 Oxygen Delivery Method Fraction of Inspired Oxygen (FIO2) 21 Weight Weight: 70.2 kg Body Mass Index (BMI) 31.2 Physical Exam Const Constitutional Narrative: Patient was sedated and on the ventilator at the time of my examination HEENT normocephalic, head/scalp atraumatic and moist oral mucous membranes Eyes PERRL and conjunctivae normal Neck no JVD, thyroid normal and no carotid bruits General: trachea midline Resp normal respiratory effort, no retractions, no use of accessory muscles and clear to auscultation bilaterally Auscultation: Negative for rales, rhonchi or wheezes Cardio regular rate, regular rhythm, S1 normal heart sound, S2 normal heart sound, no murmurs, no rub and no gallops GI normal to inspection, nondistended, normoactive bowel sounds, soft to palpation, non-tender and non-distended Extremity no clubbing, cyanosis or edema Skin no rashes or lesions noted General Skin Exam: no breakdown Neuro CN's II-XII intact bilaterally Neuro Narrative: Patient was sedated on the ventilator Psych Psych Narrative: Patient was sedated on the ventilator Results Lab / Micro Data 08/17/24 12:51 08/17/24 12:51 Labs: Laboratory Results - last 24 hr 08/17/24 12:51: WBC 6.4, RBC 3.75 L, Hgb 11.9 L, Hct 35.3 L, MCV 94.1, MCH 31.7, MCHC 33.7, RDW Std Deviation 43.3, RDW Coeff of Adrianna 12.6, Plt Count 299, MPV 11.0, Immature Gran % (Auto) 0.300, Neut % (Auto) 68.7, Lymph % (Auto) 22.4, [place] % (Auto) 6.1, Eos % (Auto) 2.2, Baso % (Auto) 0.3, Absolute Neuts (auto) 4.4, Absolute Lymphs (auto) 1.43, Nucleated RBC % 0, PT Cancelled, INR Cancelled, APTT Cancelled, Sodium 140, Potassium 3.7, Chloride 109 H, Carbon Dioxide 18.6 L, Anion Gap 13, BUN 10, Creatinine 0.59 L, Estim Creat Clear Calc 108.39, Est GFR (MDRD) Non-Af 113, BUN/Creatinine Ratio 16.8, Glucose 106 H, Calcium 8.2, Total Bilirubin 0.21, Direct Bilirubin < 0.08, AST 18, ALT 6, Alkaline Phosphatase 34 L, Total Creatine Kinase 44, Troponin T High Sens < 6, Total Protein 6.1, Albumin 3.7, Globulin 2.4, Triglycerides 315 H, Lipase 22, Serum , Qual NEGATIVE, Salicylates < 0.5 L, Acetaminophen < 5.0 L, Ethyl Alcohol 181.0 H 08/17/24 13:15: Urine Color Straw, Urine Clarity Clear, Urine pH 6.0, Ur Specific [place] 1.015, Urine Protein 15 H, Urine Glucose (UA) Normal, Urine Ketones Negative, Urine Occult Blood 10 H, Urine Nitrite Negative, Urine Bilirubin Negative, Urine Urobilinogen Normal, Ur Leukocyte Esterase Negative, Urine RBC 0-5 SEEN, Urine WBC 0 SEEN, Ur Squamous Epith Cells 0 SEEN, Urine Bacteria 0 SEEN, Urine Mucus 0 SEEN, Urine Opiates Screen NEGATIVE, U Buprenorphine Qual NEGATIVE, Ur Oxycodone Screen NEGATIVE, Urine Methadone Screen NEGATIVE, Urine Fentanyl Screen NEGATIVE, Ur Barbiturates Screen NEGATIVE, Ur Phencyclidine Scrn NEGATIVE, Ur Amphetamines Screen NEGATIVE, U Benzodiazepines Scrn NEGATIVE, Urine Cocaine Screen NEGATIVE, U Cannabinoids Screen PRESUMPTIVE POSITIVE 08/17/24 13:28: Lactic Acid 2.7 H* ABG Data ABG results: ABG 08/17/24 13:23 Specimen Type ART Sample Site L Radial pH 7.34 L Bicarbonate Actual 19.3 L Total CO2 20 Base Excess -7 L O2 Saturation 100 H O2 % 50.0 ABG pCO2 36.1 ABG pO2 210 H Jorge Test Positive Respiration Rate 14 O2 Delivery Device ET Tube Vent Mode AC Tidal Volume 450.0 POC PEEP 5 Imaging Radiology Impression Chest X-Ray 08/17/24 13:25 IMPRESSION: 1. ET tube is in the right main bronchus. Retraction is recommended. 2. Pulmonary venous congestion. Reading Location: [facility] Brain CT 08/17/24 13:42 IMPRESSION: No acute intracranial hemorrhage, midline shift or mass effect. If symptoms persist, further evaluation with MRI is recommended. Reading Location: [facility] Assessment & Plan Assessment/Plan (1) Drug overdose, intentional: PLAN: Plan 1. Intentional drug overdose-exact medication/drug unknown, patient will be admitted to ICU and will remain on the ventilator at this time, patient will remain on propofol for now #2 alcohol intoxication-patient will remain sedated on the ventilator at this time #3 major depressive disorder-complicates care, management, recovery, and prognosis #4 fibromyalgia-according to the patient's family, she has a history of fibromyalgia, it is unknown whether she takes any medications for this Total clinical time spent by myself addressing the patient's medical issues, reviewing all of her data, and collaborating with patient's care team: 75 minutes Charges/Coding Visit Charges Inpatient E&M: 45141 Init Hosp L3
[2024-08-17] MEDS: 0.9% Normal Saline (1000mL) 1,000 ML 150 ML IV ×2 (16:22→22:26)
[2024-08-17 17:27] LABS: Partial Thromboplast Time 25.3 Seconds (24.1-36.2); Prothrombin Time (Protime)PT. 13.7 SECONDS (11.7-14.9)
[2024-08-17 17:34] LABS: Troponin T High Sens 2 HR < 6 ng/L (<=14)
[2024-08-17 17:35] LABS: Reflex Lactate? Y
[2024-08-17 18:03] LABS: Lactic Acid 3.7 mmol/L (0.0-2.0)
[2024-08-17] MEDS: Heparin Injection (Vial) 5,000 UNIT/ML VIAL 5000 UNIT SC (20:26)
[2024-08-17] MEDS: Propofol 10MG/Ml 1,000 MG/100 ML Bottle 13.4 MG CONT INF (20:26)
[2024-08-17] MEDS: Pantoprazole Sodium 40 MG in 0.9% Normal Saline (100mL MB+) 100 ML 330 MG IV (20:27)
[2024-08-17] MEDS: Chlorhexidine 15 ML PO (20:28)
[2024-08-17 21:07] LABS: Reflex Lactate? Y
[2024-08-17] MEDS: 0.9% Saline Lock 10 ML Syringe IV (22:18)
[2024-08-17 23:09] LABS: Lactic Acid 3.5 mmol/L (0.0-2.0)
[2024-08-17] MEDS: fentaNYL drip 100 ML 5 MCG CONT INF (23:09)
[2024-08-18] VITALS (27 sets, daily range): BP systolic 110–147; BP diastolic 74–93; PULSE 57–95; RESP 11–24; TEMP 37.2–38.9; O2SAT 90–100; BMI 32.3
--- NOTE | 2024-08-18 00:10 | CON.PCM.CC_ITS ---
HPI Consult Data Date of Consult: 08/18/24 HPI Narrative Reason for Consultation: intubated HPI Narrative: SONI JOHNSON, is a 44yo who presents after intentional ingestion of norco/tramadol/xanaflex in inappropriate quanitities in combination with alcohol. She was trialed on Narcan in ED, but ultimately ended up intubated. Apparently very agitated on propofol drip on arrival in ICU. LA elevated, but LFTs WNL. As patient i unable to supply CC and HPI, remainder obtained from EMR and on site staff: Evaluation of the patient in the emergency room revealed her to be responsive to deep painful stimulation only, decision was made to intubate the patient for airway protection based on a blunted gag reflex and a GCS of 8. Basic blood work showed a hemoglobin of 11.9, normal creatinine, normal sodium and potassium. Lactic acid was elevated at 2.7, alcohol level was elevated at 181. Urine toxicology was positive for cannabinoids, test was negative, CT of the brain showed no acute findings. Patient was placed on propofol for sedation. Patient was given IV fluids in the emergency room and will be admitted to ICU for further care. [facility] Medical History Alcohol abuse Smoker Migraines Suicide attempt Depression Anxiety Home Medications ?Medication ?Instructions ?Recorded ?Last Taken ?Type NK 08/17/24 Unknown History Allergy/AdvReac Type Severity Reaction Status Date / Time duloxetine (From Cymbalta) Allergy Nausea Verified 05/27/21 16:15 Surgical History History of arthroscopy of right knee History of ankle surgery Social History household members: significant other and other details: States significant other is status postvasectomy Smoking Status: Current every day smoker tobacco type: cigarettes substance use type: does not use Objective Data Objective Data Vital Signs: Vital Signs Last response 3 Temperature 36.0 C L 08/17/24 19:00 Temperature Source Temporal 08/17/24 22:00 Pulse Rate 67 08/17/24 23:45 Respiratory Rate 18 08/17/24 23:45 Respiratory Effort Mechanically Ventilated 08/17/24 20:00 Respiratory Depth Normal 08/17/24 16:00 Respiratory Pattern Normal 08/17/24 23:45 Blood Pressure 117/72 08/17/24 23:00 Blood Pressure Mean 87 08/17/24 23:00 Blood Pressure Source Monitor 08/17/24 23:00 Blood Pressure Position Semi-Fowlers 08/17/24 23:00 Blood Pressure Location Left Arm 08/17/24 23:00 Pulse Ox 98 08/17/24 23:45 Oxygen Delivery Method Mechanical Ventilator 08/17/24 23:00 Oxygen Flow Rate (L/min) 99 08/17/24 21:00 Fraction of Inspired Oxygen (FIO2) 21 08/17/24 23:45 I&O: I&O Last 24 Hours 3 08/17/24 08/17/24 08/18/24 11:59 23:59 11:59 Intake Total 2888.82 / 2888.82 Output Total 810 / 810 Balance 2078.82 / 2078.82 I&O: Total Stay 3 08/17/24 12:43 thru 08/17/24 23:55 Intake Total 2888.82 Output Total 810 Balance 2078.82 Current Meds Ordered / Administered: Current meds ordered / Administered 3 Generic Name Dose Route Start Last Admin Trade Name Freq PRN Reason Stop Dose Admin Chlorhexidine Gluconate 15 ml 08/17/24 22:00 08/17/24 20:28 Chlorhexidine 15 Ml PO 15 ml BID REINALDO Administration Chlorhexidine Gluconate 1 each 08/18/24 10:00 Chlorhexidine Gluc 2% Cloth 1 Each [place] TOPICAL DAILY REINALDO Heparin Sodium (Porcine) 5,000 unit 08/17/24 22:00 08/17/24 20:26 Heparin Injection (Vial) 5,000 Unit/Ml Vial SC 5,000 unit Q12 REINALDO Administration Propofol 1,000 mg in 100 mls @ 4.458 mls/hr 08/17/24 13:00 08/17/24 23:48 Diprivan CONT INF 50 mcg/kg/min .Q12H REINALDO 22.3 mls/hr Titration Protocol 10 MCG/KG/MIN Sodium Chloride 1,000 mls @ 150 mls/hr 08/17/24 16:09 08/17/24 22:26 IV 150 mls/hr .Q6H40M REINALDO Administration Pantoprazole Sodium 40 mg/ 110 mls @ 330 mls/hr 08/17/24 20:00 08/17/24 20:47 Sodium Chloride IV Infused Q24 REINALDO Infusion Fentanyl 100 mls @ 5 mls/hr 08/17/24 22:55 08/17/24 23:55 CONT INF 75 mcg/hr UD REINALDO 7.5 mls/hr Titration Protocol 50 MCG/HR Morphine Sulfate 2 - 4 mg 08/17/24 16:09 Morphine 2 Mg/Ml Syringe IV Q3H PRN PRN Pain Score 6-10 Ondansetron HCl 4 mg 08/17/24 16:09 Ondansetron 4 Mg/2 Ml Vial IV Q8H PRN PRN NAUSEA/VOMITING Sodium Chloride 10 - 40 ml 08/17/24 16:17 08/17/24 22:18 0.9% Saline Lock 10 Ml Syringe IV 40 ml UD PRN Administration SALINE FLUSH Physical Exam Const Constitutional Narrative: MORIS 0 to -1 General Appearance: patient mechanically ventilated HEENT normocephalic Eyes PERRL Neck no JVD Chest inspection of chest normal Resp normal respiratory effort and no use of accessory muscles Auscultation: clear to auscultation bilaterally Cardio regular rate and regular rhythm GI normal to inspection, nondistended, normoactive bowel sounds no CVA tenderness Skin no rashes or lesions noted Lab / Micro Data 08/17/24 12:51 08/17/24 12:51 Labs: Laboratory Results - last 24 hr 08/17/24 12:51: WBC 6.4, RBC 3.75 L, Hgb 11.9 L, Hct 35.3 L, MCV 94.1, MCH 31.7, MCHC 33.7, RDW Std Deviation 43.3, RDW Coeff of Adrianna 12.6, Plt Count 299, MPV 11.0, Immature Gran % (Auto) 0.300, Neut % (Auto) 68.7, Lymph % (Auto) 22.4, [place] % (Auto) 6.1, Eos % (Auto) 2.2, Baso % (Auto) 0.3, Absolute Neuts (auto) 4.4, Absolute Lymphs (auto) 1.43, Nucleated RBC % 0, PT Cancelled, INR Cancelled, APTT Cancelled, Sodium 140, Potassium 3.7, Chloride 109 H, Carbon Dioxide 18.6 L, Anion Gap 13, BUN 10, Creatinine 0.59 L, Estim Creat Clear Calc 108.39, Est GFR (MDRD) Non-Af 113, BUN/Creatinine Ratio 16.8, Glucose 106 H, Calcium 8.2, Total Bilirubin 0.21, Direct Bilirubin < 0.08, AST 18, ALT 6, A lkaline Phosphatase 34 L, Total Creatine Kinase 44, Troponin T High Sens < 6, Total Protein 6.1, Albumin 3.7, Globulin 2.4, Triglycerides 315 H, Lipase 22, Serum , Qual NEGATIVE, Salicylates < 0.5 L, Acetaminophen < 5.0 L, E thyl Alcohol 181.0 H 08/17/24 13:15: Urine Color Straw, Urine Clarity Clear, Urine pH 6.0, Ur Specific [place] 1.015, Urine Protein 15 H, Urine Glucose (UA) Normal, Urine Ketones Negative, Urine Occult Blood 10 H, Urine Nitrite Negative, Urine Bilirubin Negative, Urine Urobilinogen Normal, Ur Leukocyte Esterase Negative, Urine RBC 0-5 SEEN, Urine WBC 0 SEEN, Ur Squamous Epith Cells 0 SEEN, Urine Bacteria 0 SEEN, Urine Mucus 0 SEEN, Urine Opiates Screen NEGATIVE, U Buprenorphine Qual NEGATIVE, Ur Oxycodone Screen NEGATIVE, Urine Methadone Screen NEGATIVE, Urine Fentanyl Screen NEGATIVE, Ur Barbiturates Screen NEGATIVE, Ur Phencyclidine Scrn NEGATIVE, Ur Amphetamines Screen NEGATIVE, U Benzodiazepines Scrn NEGATIVE, Urine Cocaine Screen NEGATIVE, U Cannabinoids Screen PRESUMPTIVE POSITIVE 08/17/24 13:28: Lactic Acid 2.7 H* 08/17/24 17:00: PT 13.7, INR 1.0, APTT 25.3, Lactic Acid 3.7 H*, Troponin T Hi Sens 2 Hr < 6 08/17/24 22:16: Lactic Acid 3.5 H* ABG Data ABG results: ABG 08/17/24 13:23 Specimen Type ART Sample Site L Radial pH 7.34 L Bicarbonate Actual 19.3 L Total CO2 20 Base Excess -7 L O2 Saturation 100 H O2 % 50.0 ABG pCO2 36.1 ABG pO2 210 H Jorge Test Positive Respiration Rate 14 O2 Delivery Device ET Tube Vent Mode AC Tidal Volume 450.0 POC PEEP 5 Imaging Radiology Impression Chest X-Ray 08/17/24 13:25 IMPRESSION: 1. ET tube is in the right main bronchus. Retraction is recommended. 2. Pulmonary venous congestion. Reading Location: [facility] Brain CT 08/17/24 13:42 IMPRESSION: No acute intracranial hemorrhage, midline shift or mass effect. If symptoms persist, further evaluation with MRI is recommended. Reading Location: [facility] Assessment and Plan . Assessment and plan: ICU PRoblems List: mechanical ventilation intentional overdose of medication alcohol abuse lactic acidosis without ALI Plan: RASS goal -2 on fentanyl and propofol so long as airway is secure controlled and protracted SAT/SBT for detoxification B12/folate for ETOH use IVF at 100cc/hr for lactic acidosis may need EEG to r/o SZ as no other clear explaination for lactic acid Matthew Rollins MD [facility] Access TeleCare Critical Care Time: 60 min The entirety of this encounter was done via Telemedicine
[2024-08-18] MEDS: Propofol 10MG/Ml 1,000 MG/100 ML Bottle 22.3 MG CONT INF (00:58)
[2024-08-18 02:50] LABS: Blood Gas Specimen Type VEN; O2 Delivery Device Adult Vent; PEEP 5; RR 14; SITE Not entered; VBG BASE EXCESS -4 mmol/L (-1.0-3.5); VBG Bicarbonate 20 mmol/L (22-26); VBG PO2 36 mmHg (25-40); VBG SO2 76 % (50-70); VBG TCO2 20 mmol/L (23-33); VBG pCO2 25.5 mmHg (41-51); VBG pH 7.49 (7.32-7.42)
[2024-08-18 02:54] LABS: Absolute Lymphocyte Count 1.34 X10^3/uL (0.83-4.51); Absolute Neutrophil Count 8.8 X10^3/uL (2.0-7.7); Basophil# 0.03 X10^3/uL; Basophil% 0.3 % (0-1); Eosinophils% 1.8 % (0-5); Lymphocyte # 1.34 X10^3/ul (0.83-4.51); Lymphocyte % 12.2 % (19-41); Mean Corp Hgb Conc 34.4 g/dL (32-36); Mean Corpuscular Hgb 31.4 pg (27.0-32.0); Mean Corpuscular Volume 91.4 fL (81-99); Mean Platelet Vol. 9.9 fl (6.2-12.0); Monocyte# 0.58 X10^3/uL; Monocyte% 5.3 % (0-10); NRBC Flagged by Analyzer 0 % (0-5); Neutrophil # 8.76 X10^3/uL (2.7-7.7); Platelet Count 230 K/mm3 (150-450); RBC Distribution Width CV 12.7 % (11.6-14.6)
[2024-08-18 03:17] LABS: ALB/GLOB Ratio 1.7 RATIO (0.9-2.4); AST(SGOT) 22 U/L (<=31); Alanine Aminotransfer ALT/SGPT 8 U/L (<=34); Albumin, Serum 3.4 g/dL (3.5-5.0); Alkaline Phosphatase 32 U/L (35-104); Anion Gap 12 (5-15); BUN 8 mg/dL (4-19); BUN/Creat Ratio 12.7 RATIO (10-20); Calcium,Total 7.6 mg/dL (7.6-11.0); Carbon Dioxide 17.5 mmol/L (21.0-32.0); Chloride 111 mmol/L (98-108); Creatinine, Serum 0.65 mg/dL (0.70-1.20); EST Glomerular Filtration Rate 111 (>60); Estimated Creatinine Clearance 97.42 ml/min (50-250); Glucose 96 mg/dL (70-99); Potassium 3.7 mmol/L (3.3-5.1); Protein, Total 5.4 g/dL (5.9-8.4); Sodium Level 140 mmol/L (133-145); Total Bilirubin 0.18 mg/dL (0.00-1.30)
--- NOTE | 2024-08-18 07:15 | PCM.PN.HOSP ---
Reason for Visit Reason for Visit: Diagnoses Poisoning by unspecified drugs, medicaments and biological substances, intentional self-harm, initial encounter (08/17/24) Subjective Subjective Doing well on breathing trial. Has been having having fevers. Objective Data Objective Data Vital Signs: Vital Signs Temp Pulse Resp BP Pulse Ox O2 Del Method O2 Flow Rate 38.2 C H 77 16 130/83 H 98 Mechanical Ventilator 97 08/18/24 04:01 08/18/24 04:01 08/18/24 04:01 08/18/24 04:01 08/18/24 03:00 08/18/24 04:01 08/18/24 04:01 FiO2 21 08/18/24 03:45 Oxygen Flow Rate (L/min) 97 Oxygen Delivery Method Mechanical Ventilator Weight: 72.9 kg Body Mass Index (BMI) 32.3 Intake & Output: Intake and Output for Last 24 Hours 08/16/24 08/17/24 08/18/24 23:59 23:59 23:59 Intake Total 2888.82 / 2893.28 142.41 / 142.41 Output Total 810 / 960 450 / 450 Balance 2078.82 / 1933.28 -307.59 / -307.59 Lab / Micro Data 08/18/24 02:40 08/18/24 02:40 Labs: Laboratory Results - last 24 hr 08/17/24 12:51: WBC 6.4, RBC 3.75 L, Hgb 11.9 L, Hct 35.3 L, MCV 94.1, MCH 31.7, MCHC 33.7, RDW Std Deviation 43.3, RDW Coeff of Adrianna 12.6, Plt Count 299, MPV 11.0, Immature Gran % (Auto) 0.300, Neut % (Auto) 68.7, Lymph % (Auto) 22.4, [place] % (Auto) 6.1, Eos % (Auto) 2.2, Baso % (Auto) 0.3, Absolute Neuts (auto) 4.4, Absolute Lymphs (auto) 1.43, Nucleated RBC % 0, PT Cancelled, INR Cancelled, APTT Cancelled, Sodium 140, Potassium 3.7, Chloride 109 H, Carbon Dioxide 18.6 L, Anion Gap 13, BUN 10, Creatinine 0.59 L, Estim Creat Clear Calc 108.39, Est GFR (MDRD) Non-Af 113, BUN/Creatinine Ratio 16.8, Glucose 106 H, Calcium 8.2, Total Bilirubin 0.21, Direct Bilirubin < 0.08, AST 18, ALT 6, Alkaline Phosphatase 34 L, Total Creatine Kinase 44, Troponin T High Sens < 6, Total Protein 6.1, Albumin 3.7, Globulin 2.4, Triglycerides 315 H, Lipase 22, Serum , Qual NEGATIVE, Salicylates < 0.5 L, Acetaminophen < 5.0 L, Ethyl Alcohol 181.0 H 08/17/24 13:15: Urine Color Straw, Urine Clarity Clear, Urine pH 6.0, Ur Specific [place] 1.015, Urine Protein 15 H, Urine Glucose (UA) Normal, Urine Ketones Negative, Urine Occult Blood 10 H, Urine Nitrite Negative, Urine Bilirubin Negative, Urine Urobilinogen Normal, Ur Leukocyte Esterase Negative, Urine RBC 0-5 SEEN, Urine WBC 0 SEEN, Ur Squamous Epith Cells 0 SEEN, Urine Bacteria 0 SEEN, Urine Mucus 0 SEEN, Urine Opiates Screen NEGATIVE, U Buprenorphine Qual NEGATIVE, Ur Oxycodone Screen NEGATIVE, Urine Methadone Screen NEGATIVE, Urine Fentanyl Screen NEGATIVE, Ur Barbiturates Screen NEGATIVE, Ur Phencyclidine Scrn NEGATIVE, Ur Amphetamines Screen NEGATIVE, U Benzodiazepines Scrn NEGATIVE, Urine Cocaine Screen NEGATIVE, U Cannabinoids Screen PRESUMPTIVE POSITIVE 08/17/24 13:28: Lactic Acid 2.7 H* 08/17/24 17:00: PT 13.7, INR 1.0, APTT 25.3, Lactic Acid 3.7 H*, Troponin T Hi Sens 2 Hr < 6 08/17/24 22:16: Lactic Acid 3.5 H* 08/18/24 02:40: WBC 11.0, RBC 3.50 L, Hgb 11.0 L, Hct 32.0 L, MCV 91.4, MCH 31.4, MCHC 34.4, RDW Std Deviation 42.0, RDW Coeff of Adrianna 12.7, Plt Count 230, MPV 9.9, Immature Gran % (Auto) 0.400, Neut % (Auto) 80.0 H, Lymph % (Auto) 12.2 L, [place] % (Auto) 5.3, Eos % (Auto) 1.8, Baso % (Auto) 0.3, Absolute Neuts (auto) 8.8 H, Absolute Lymphs (auto) 1.34, Nucleated RBC % 0, Sodium 140, Potassium 3.7, Chloride 111 H, Carbon Dioxide 17.5 L, Anion Gap 12, BUN 8, Creatinine 0.65 L, Estim Creat Clear Calc 97.42, Est GFR (MDRD) Non-Af 111, BUN/Creatinine Ratio 12.7, Glucose 96, Calcium 7.6, Total Bilirubin 0.18, AST 22, ALT 8, Alkaline Phosphatase 32 L, Total Protein 5.4 L, Albumin 3.4 L, Globulin 2.0 L, Albumin/Globulin Ratio 1.7 ABG Data ABG results: ABG 08/17/24 08/18/24 13:23 02:45 Specimen Type ART ALFREDO Sample Site L Radial Not entered pH 7.34 L Bicarbonate Actual 19.3 L Total CO2 20 Base Excess -7 L O2 Saturation 100 H O2 % 50.0 21.0 ABG pCO2 36.1 ABG pO2 210 H Jorge Test Positive VBG pH 7.49 H VBG pO2 36 VBG HCO3 20 L VBG Total CO2 20 L VBG O2 Sat (Calc) 76 H VBG Base Excess -4 L POC Mix VBG pCO2 Pt Tmp 25.5 L Respiration Rate 14 14 O2 Delivery Device ET Tube Adult Vent Vent Mode AC Tidal Volume 450.0 450.0 POC PEEP 5 5 Radiography Diagnostic Testing: Radiology Impression Chest X-Ray 08/17/24 13:25 IMPRESSION: 1. ET tube is in the right main bronchus. Retraction is recommended. 2. Pulmonary venous congestion. Reading Location: [facility] Brain CT 08/17/24 13:42 IMPRESSION: No acute intracranial hemorrhage, midline shift or mass effect. If symptoms persist, further evaluation with MRI is recommended. Reading Location: [facility] Physical Exam Const Constitutional Narrative: intubated. awake. follows commands. HEENT head/scalp atraumatic and moist oral mucous membranes Resp normal respiratory effort, no retractions, no use of accessory muscles and clear to auscultation bilaterally Cardio regular rate, regular rhythm, S1 normal heart sound and S2 normal heart sound GI normal to inspection, nondistended, normoactive bowel sounds, soft to palpation, non-tender and non-distended Extremity normal to inspection and full ROM Neuro Sensorium / Orientation: awake Assessment & Plan Assessment/Plan (1) Respiratory failure: PLAN: Intubated 08/17, extubated 08/18 Not hypoxic nor hypercapnic, but intubated for airway protection given drug overdose CT concerning for PNA on pip/tazo (2) Drug overdose, intentional: PLAN: Cryptic text sent to family Suspected drug overdose suspected, etiology unclear. Supportive mgmt. Likely multiple medications and alcohol. Head CT negative. Crisis to see when patient is medically stable. (3) Pneumonia: PLAN: suspect aspiration given drug overdose. on pip/tazo (4) Lactic acidosis: PLAN: Trended up slightly. Will recheck. I suspect due to respiratory failure, drug overdose, pneumonia EEG ordered to rule out seizure. PLAN: Plan VTE prophylaxis: LMWH. Patient will require pink slip and crisis evaluation once she is medically stable. Charges/Coding Visit Charges Inpatient E&M: 23686 Subs Hosp L3
[2024-08-18] MEDS: Chlorhexidine 15 ML PO (07:45)
[2024-08-18 07:58] LABS: Base Excess -6 mmol/L (-2 to +2); Blood Gas Specimen Type ART; Mode AC; O2 Delivery Device ET Tube; PEEP 5; PO2 82 mmHG (75-100); RR 14; SITE L Radial; SO2 97 % (95-99); Total Carbon Dioxide 18 mmol/L; pH 7.52 (7.35-7.45)
--- NOTE | 2024-08-18 08:15 | CT_ITS ---
PROCEDURE: CHEST WITHOUT CONTRAST 08/18/2024 REASON FOR EXAM: Shortness of breath and fever. TECHNIQUE: Chest CT without contrast. Coronal and Sagittal reconstruction series were provided. One or more dose reduction techniques were used (e.g., Automated exposure control, adjustment of the mA and/or kV according to patient size, use of iterative reconstruction technique RADIATION DOSE SUMMARY: CTDlvol: 17 mGy DLP: 500 mGycm COMPARISON: Chest radiograph 08/17/2024. FINDINGS: Hardware: Endotracheal tube terminating approximately 1 point 6 cm above the level of the eyad. Enteric tube coursing into the stomach, terminating outside the field of view. Right IJ central venous catheter with tip terminating in the right atrium. Lymph nodes: Lymph node visualization is limited without the use of IV contrast. No axillary, mediastinal or hilar lymphadenopathy. Heart and Vasculature: The heart is normal in size without pericardial effusion. The great vessels are normal in caliber. Lungs and Airways: Endotracheal tube. The central airways are patent. Visualization is slightly limited by motion artifact. Minimal ground-glass opacification within the right lower lobe (for example series 4, image 43). Small bilateral pleural effusions. No pneumothorax. Upper Abdomen: Unremarkable. Bones: No aggressive osseous lesions. CT/Chest without Contrast IMPRESSION: 1. Minimal ground-glass opacification within the right lower lobe, which may re present infectious or inflammatory pneumonitis. 2. Trace bilateral pleural effusions. 3. Support devices as described. Reading Location: [id number]
--- NOTE | 2024-08-18 09:07 | PCM.PN.TICU ---
Objective Data Objective Data Vital Signs: Vital Signs Last response Temperature 38.2 C H 08/18/24 04:01 Temperature Source Core 08/18/24 04:01 Pulse Rate 77 08/18/24 04:01 Respiratory Rate 16 08/18/24 04:01 Respiratory Effort Mechanically Ventilated 08/18/24 03:45 Respiratory Depth Normal 08/18/24 03:45 Respiratory Pattern Normal 08/18/24 03:45 Blood Pressure 130/83 H 08/18/24 04:01 Blood Pressure Mean 98 08/18/24 04:01 Blood Pressure Source Monitor 08/18/24 03:00 Blood Pressure Position Semi-Fowlers 08/17/24 23:00 Blood Pressure Location Left Arm 08/17/24 23:00 Pulse Ox 98 08/18/24 03:00 Oxygen Delivery Method Mechanical Ventilator 08/18/24 04:01 Oxygen Flow Rate (L/min) 97 08/18/24 04:01 Fraction of Inspired Oxygen (FIO2) 21 08/18/24 03:45 I&O: I&O Last 24 Hours 08/17/24 08/17/24 08/18/24 11:59 23:59 11:59 Intake Total 2888.82 / 2893.28 142.41 / 142.41 Output Total 810 / 960 450 / 450 Balance 2078.82 / 1933.28 -307.59 / -307.59 I&O: Total Stay 08/17/24 12:43 thru 08/18/24 04:00 Intake Total 3031.23 Output Total 1260 Balance 1771.23 Current Meds Ordered / Administered: Current meds ordered / Administered Generic Name Dose Route Start Last Admin Trade Name Geq PRN Reason Stop Dose Admin Chlorhexidine Gluconate 15 ml 08/17/24 22:00 08/17/24 20:28 Chlorhexidine 15 Ml PO 15 ml BID REINALDO Administration Chlorhexidine Gluconate 1 each 08/18/24 10:00 Chlorhexidine Gluc 2% Cloth 1 Each Towelette TOPICAL DAILY REINALDO Heparin Sodium (Porcine) 5,000 unit 08/17/24 22:00 08/17/24 20:26 Heparin Injection (Vial) 5,000 Unit/Ml Vial SC 5,000 unit Q12 REINALDO Administration Propofol 1,000 mg in 100 mls @ 4.458 mls/hr 08/17/24 13:00 08/18/24 04:00 Diprivan CONT INF 50 mcg/kg/min .Q12H REINALDO 22.3 mls/hr Titration Protocol 10 MCG/KG/MIN Sodium Chloride 1,000 mls @ 150 mls/hr 08/17/24 16:09 08/17/24 22:26 IV 150 mls/hr .Q6H40M REINALDO Administration Pantoprazole Sodium 40 mg/ 110 mls @ 330 mls/hr 08/17/24 20:00 08/17/24 20:47 Sodium Chloride IV Infused Q24 REINALDO Infusion Fentanyl 100 mls @ 5 mls/hr 08/17/24 22:55 08/18/24 04:00 CONT INF 175 mcg/hr UD REINALDO 17.5 mls/hr Titration Protocol 50 MCG/HR Piperacillin Sod/Tazobactam 50 mls @ 12.5 mls/hr 08/18/24 06:00 Sod 3.375 gm/ Sodium Chloride IV Q8 REINALDO Morphine Sulfate 2 - 4 mg 08/17/24 16:09 Morphine 2 Mg/Ml Syringe IV Q3H PRN PRN Pain Score 6-10 Ondansetron HCl 4 mg 08/17/24 16:09 Ondansetron 4 Mg/2 Ml Vial IV Q8H PRN PRN NAUSEA/VOMITING Sodium Chloride 10 - 40 ml 08/17/24 16:17 08/17/24 22:18 0.9% Saline Lock 10 Ml Syringe IV 40 ml UD PRN Administration SALINE FLUSH Lab / Micro Data Attestation: I reviewed the patient's lab results. 08/18/24 02:40 08/18/24 02:40 Labs: Laboratory Results - last 24 hr 08/17/24 12:51: WBC 6.4, RBC 3.75 L, Hgb 11.9 L, Hct 35.3 L, MCV 94.1, MCH 31.7, MCHC 33.7, RDW Std Deviation 43.3, RDW Coeff of Adrianna 12.6, Plt Count 299, MPV 11.0, Immature Gran % (Auto) 0.300, Neut % (Auto) 68.7, Lymph % (Auto) 22.4, Barry % (Auto) 6.1, Eos % (Auto) 2.2, Baso % (Auto) 0.3, Absolute Neuts (auto) 4.4, Absolute Lymphs (auto) 1.43, Nucleated RBC % 0, PT Cancelled, INR Cancelled, APTT Cancelled, Sodium 140, Potassium 3.7, Chloride 109 H, Carbon Dioxide 18.6 L, Anion Gap 13, BUN 10, Creatinine 0.59 L, Estim Creat Clear Calc 108.39, Est GFR (MDRD) Non-Af 113, BUN/Creatinine Ratio 16.8, Glucose 106 H, Calcium 8.2, Total Bilirubin 0.21, Direct Bilirubin < 0.08, AST 18, ALT 6, Alkaline Phosphatase 34 L, Total Creatine Kinase 44, Troponin T High Sens < 6, Total Protein 6.1, Albumin 3.7, Globulin 2.4, Triglycerides 315 H, Lipase 22, Serum , Qual NEGATIVE, Salicylates < 0.5 L, Acetaminophen < 5.0 L, Ethyl Alcohol 181.0 H 08/17/24 13:15: Urine Color Straw, Urine Clarity Clear, Urine pH 6.0, Ur Specific [place] 1.015, Urine Protein 15 H, Urine Glucose (UA) Normal, Urine Ketones Negative, Urine Occult Blood 10 H, Urine Nitrite Negative, Urine Bilirubin Negative, Urine Urobilinogen Normal, Ur Leukocyte Esterase Negative, Urine RBC 0-5 SEEN, Urine WBC 0 SEEN, Ur Squamous Epith Cells 0 SEEN, Urine Bacteria 0 SEEN, Urine Mucus 0 SEEN, Urine Opiates Screen NEGATIVE, U Buprenorphine Qual NEGATIVE, Ur Oxycodone Screen NEGATIVE, Urine Methadone Screen NEGATIVE, Urine Fentanyl Screen NEGATIVE, Ur Barbiturates Screen NEGATIVE, Ur Phencyclidine Scrn NEGATIVE, Ur Amphetamines Screen NEGATIVE, U Benzodiazepines Scrn NEGATIVE, Urine Cocaine Screen NEGATIVE, U Cannabinoids Screen PRESUMPTIVE POSITIVE 08/17/24 13:28: Lactic Acid 2.7 H* 08/17/24 17:00: PT 13.7, INR 1.0, APTT 25.3, Lactic Acid 3.7 H*, Troponin T Hi Sens 2 Hr < 6 08/17/24 22:16: Lactic Acid 3.5 H* 08/18/24 02:40: WBC 11.0, RBC 3.50 L, Hgb 11.0 L, Hct 32.0 L, MCV 91.4, MCH 31.4, MCHC 34.4, RDW Std Deviation 42.0, RDW Coeff of Adrianna 12.7, Plt Count 230, MPV 9.9, Immature Gran % (Auto) 0.400, Neut % (Auto) 80.0 H, Lymph % (Auto) 12.2 L, Barry % (Auto) 5.3, Eos % (Auto) 1.8, Baso % (Auto) 0.3, Absolute Neuts (auto) 8.8 H, Absolute Lymphs (auto) 1.34, Nucleated RBC % 0, Sodium 140, Potassium 3.7, Chloride 111 H, Carbon Dioxide 17.5 L, Anion Gap 12, BUN 8, Creatinine 0.65 L, Estim Creat Clear Calc 97.42, Est GFR (MDRD) Non-Af 111, BUN/Creatinine Ratio 12.7, Glucose 96, Calcium 7.6, Total Bilirubin 0.18, AST 22, ALT 8, Alkaline Phosphatase 32 L, Total Protein 5.4 L, Albumin 3.4 L, Globulin 2.0 L, Albumin/Globulin Ratio 1.7 ABG Data ABG results: ABG 08/17/24 08/18/24 08/18/24 13:23 02:45 07:54 Specimen Type ART ALFREDO ART Sample Site L Radial Not entered L Radial pH 7.34 L 7.52 H Bicarbonate Actual 19.3 L 17.0 L Total CO2 20 18 Base Excess -7 L -6 L O2 Saturation 100 H 97 O2 % 50.0 21.0 21.0 ABG pCO2 36.1 21.0 L ABG pO2 210 H 82 Jorge Test Positive VBG pH 7.49 H VBG pO2 36 VBG HCO3 20 L VBG Total CO2 20 L VBG O2 Sat (Calc) 76 H VBG Base Excess -4 L POC Mix VBG pCO2 Pt Tmp 25.5 L Respiration Rate 14 14 14 O2 Delivery Device ET Tube Adult Vent ET Tube Vent Mode AC AC Tidal Volume 450.0 450.0 450.0 POC PEEP 5 5 5 Imaging Radiology Impression Chest X-Ray 08/17/24 13:25 IMPRESSION: 1. ET tube is in the right main bronchus. Retraction is recommended. 2. Pulmonary venous congestion. Reading [facility] Brain CT 08/17/24 13:42 IMPRESSION: No acute intracranial hemorrhage, midline shift or mass effect. If symptoms persist, further evaluation with MRI is recommended. Reading [facility] Chest CT 08/18/24 08:15 IMPRESSION: 1. Minimal ground-glass opacification within the right lower lobe, which may represent infectious or inflammatory pneumonitis. 2. Trace bilateral pleural effusions. 3. Support devices as described. Reading Location: [facility] Assessment and Plan . Assessment and plan: #intentional overdose of medication- norco/tramadol/xanaflex/EtOH #respiratory failure #elevated lactic acidosis - ?sepsis #fever, source unclear- ?aspiration but chest CT unimpressive to me review Plan: Proceed with SAT/SBT B12/folate for ETOH use blood/ urine cultures empiric Abx SI precautions until cleared by Psych Critical Care Time: 50 minutes The entirety of this encounter was done via Telemedicine Physical Exam Const alert and oriented x3 General Appearance: patient mechanically ventilated HEENT head/scalp atraumatic and moist oral mucous membranes Mouth: endotracheal tube in place Eyes PERRL, conjunctivae normal and no scleral icterus Resp normal respiratory effort and no use of accessory muscles Cardio regular rate GI normal to inspection, nondistended, normoactive bowel sounds Neuro oriented x3 Psych cooperative and affect normal Appearance: well kempt Subjective Subjective Events reviewed- she is wide awake and cooperative despite propofol sedation, endorses only 2 glasses of wine daily. Febrile 101.7F currently.
[2024-08-18] MEDS: Ketorolac 15 MG/ML Vial IV (10:10)
[2024-08-18] MEDS: Piperacil/Tazobactam 3.375 GM in 0.9% Normal Saline (50mL MB+) 50 ML IV ×3 (10:13→22:44)
[2024-08-18] MEDS: Heparin Injection (Vial) 5,000 UNIT/ML VIAL 5000 UNIT SC (11:34)
[2024-08-18] MEDS: 0.9% Saline Lock 10 ML Syringe IV ×2 (11:35→22:45)
[2024-08-18 12:19] LABS: Lactic Acid 1.4 mmol/L (0.0-2.0)
[2024-08-18] MEDS: 0.9% Normal Saline (1000mL) 1,000 ML 150 ML IV ×2 (12:54→22:00)
--- NOTE | 2024-08-18 13:20 | PN.HOSP_ITS ---
Hospitalist Note [place] slip completed.
--- NOTE | 2024-08-18 13:20 | PCM.HOSP.N ---
Hospitalist Note [place] slip completed.
[2024-08-18] MEDS: Pantoprazole Sodium 40 MG in 0.9% Normal Saline (100mL MB+) 100 ML 330 MG IV (15:24)
[2024-08-18] MEDS: guaiFENesin 600 MG Tablet PO (17:12)
[2024-08-18] MEDS: Acetaminophen 325 MG Tablet 650 MG PO ×2 (17:12→21:18)
[2024-08-18] MEDS: CHLORHEXIDINE GLUC 2% CLOTH 1 EACH TOWELETTE TOPICAL (22:35)
[2024-08-18] MEDS: MELATONIN 3 MG TABLET 6 MG PO (22:45)
[2024-08-18] MEDS: BENZOCAINE/MENTHOL 1 LOZENGE MUCOUS MEM ×2 (22:45→22:50)
[2024-08-19] VITALS (10 sets, daily range): BP systolic 97–140; BP diastolic 57–93; PULSE 64–77; RESP 14–20; TEMP 36.5–37.7; O2SAT 92–100; BMI 32.3
[2024-08-19] MEDS: Acetaminophen 325 MG Tablet 650 MG PO ×4 (02:13→20:32)
[2024-08-19] MEDS: 0.9% Normal Saline (1000mL) 1,000 ML 150 ML IV ×2 (02:37→10:05)
[2024-08-19] MEDS: Morphine 2 MG/ML Syringe IV (04:05)
[2024-08-19] MEDS: BENZOCAINE/MENTHOL 1 LOZENGE MUCOUS MEM (04:05)
[2024-08-19] MEDS: Piperacil/Tazobactam 3.375 GM in 0.9% Normal Saline (50mL MB+) 50 ML IV ×3 (05:07→20:32)
[2024-08-19] MEDS: 0.9% Saline Lock 10 ML Syringe IV ×4 (05:08→20:36)
[2024-08-19] MEDS: Enoxaparin 40 MG/0.4 ML Syringe SC (05:08)
[2024-08-19 05:27] LABS: Absolute Lymphocyte Count 1.39 X10^3/uL (0.83-4.51); Basophil# 0.02 X10^3/uL; Basophil% 0.2 % (0-1); Eosinophil# 0.12 X10^3/uL; Eosinophils% 1.2 % (0-5); Hematocrit 27.6 % (37-47); Hemoglobin 9.4 g/dL (12.0-15.0); Lymphocyte # 1.39 X10^3/ul (0.83-4.51); Lymphocyte % 13.8 % (19-41); Mean Corp Hgb Conc 34.1 g/dL (32-36); Mean Corpuscular Hgb 31.5 pg (27.0-32.0); Mean Corpuscular Volume 92.6 fL (81-99); Mean Platelet Vol. 9.7 fl (6.2-12.0); Monocyte# 0.49 X10^3/uL; Monocyte% 4.9 % (0-10); NRBC Flagged by Analyzer 0 % (0-5); Neutrophil # 7.97 X10^3/uL (2.7-7.7); Neutrophil % 79.4 % (47-70); Platelet Count 186 K/mm3 (150-450); RBC Distribution Width CV 12.8 % (11.6-14.6); RBC Distribution Width SD 43.6 fl (35.1-43.9); Red Blood Count 2.98 M/mm3 (4.2-5.4)
[2024-08-19 05:51] LABS: Anion Gap 9 (5-15); BUN 4 mg/dL (4-19); BUN/Creat Ratio 6.9 RATIO (10-20); Calcium,Total 7.4 mg/dL (7.6-11.0); Carbon Dioxide 19.4 mmol/L (21.0-32.0); Chloride 112 mmol/L (98-108); Creatinine, Serum 0.65 mg/dL (0.70-1.20); EST Glomerular Filtration Rate 111 (>60); Estimated Creatinine Clearance 97.42 ml/min (50-250); Glucose 103 mg/dL (70-99); Sodium Level 141 mmol/L (133-145)
--- NOTE | 2024-08-19 06:59 | PCM.PN.HOSP ---
Reason for Visit Reason for Visit: Diagnoses Acidosis, unspecified (08/17/24) Pneumonia, unspecified organism (08/17/24) Respiratory failure, unspecified, unspecified whether with hypoxia or hypercapnia (08/17/24) Poisoning by unspecified drugs, medicaments and biological substances, intentional self-harm, initial encounter (08/17/24) Subjective Subjective States that she has no recollection of what happened. Objective Data Objective Data Vital Signs: Vital Signs Temp Pulse Resp BP Pulse Ox O2 Del Method O2 Flow Rate 37.1 C 64 19 H 107/75 94 Room Air 21 08/19/24 06:00 08/19/24 06:00 08/19/24 06:00 08/19/24 06:00 08/19/24 06:00 08/19/24 06:00 08/18/24 07:30 FiO2 21 08/18/24 09:00 Oxygen Flow Rate (L/min) 21 Oxygen Delivery Method Room Air Weight: 72.7 kg Body Mass Index (BMI) 32.3 Intake & Output: Intake and Output for Last 24 Hours 08/17/24 08/18/24 08/19/24 23:59 23:59 23:59 Intake Total 2888.82 / 2893.28 5011.77 / 5711.77 2662.5 / 2662.5 Output Total 810 / 960 5375 / 5750 1175 / 1175 Balance 2078.82 / 1933.28 -363.23 / -38.23 1487.5 / 1487.5 Lab / Micro Data 08/19/24 05:15 08/19/24 05:15 Labs: Laboratory Results - last 24 hr 08/18/24 11:30: Lactic Acid 1.4 08/19/24 05:15: WBC 10.0, RBC 2.98 L, Hgb 9.4 L, Hct 27.6 L, MCV 92.6, MCH 31.5, MCHC 34.1, RDW Std Deviation 43.6, RDW Coeff of Adrianna 12.8, Plt Count 186, MPV 9.7, Immature Gran % (Auto) 0.500, Neut % (Auto) 79.4 H, Lymph % (Auto) 13.8 L, [place] % (Auto) 4.9, Eos % (Auto) 1.2, Baso % (Auto) 0.2, Absolute Neuts (auto) 8.0 H, Absolute Lymphs (auto) 1.39, Nucleated RBC % 0, Sodium 141, Potassium 3.0 L, Chloride 112 H, Carbon Dioxide 19.4 L, Anion Gap 9, BUN 4, Creatinine 0.65 L, Estim Creat Clear Calc 97.42, Est GFR (MDRD) Non-Af 111, BUN/Creatinine Ratio 6.9 L, Glucose 103 H, Calcium 7.4 L Micro: Microbiology 08/18/24 17:00 Mucosa - Nasopharyngeal SARS-CoV-2, Influenza & RSV (PCR) - Final 08/17/24 16:20 Sputum, Induced/Lukens Gram Stain - Final ABG Data ABG results: ABG 08/18/24 07:54 Specimen Type ART Sample Site L Radial pH 7.52 H Bicarbonate Actual 17.0 L Total CO2 18 Base Excess -6 L O2 Saturation 97 O2 % 21.0 ABG pCO2 21.0 L ABG pO2 82 Respiration Rate 14 O2 Delivery Device ET Tube Vent Mode AC Tidal Volume 450.0 POC PEEP 5 Radiography Diagnostic Testing: Radiology Impression Chest CT 08/18/24 08:15 IMPRESSION: 1. Minimal ground-glass opacification within the right lower lobe, which may represent infectious or inflammatory pneumonitis. 2. Trace bilateral pleural effusions. 3. Support devices as described. Reading Location: [facility] Physical Exam Const alert and no apparent distress Constitutional Narrative: on room air. no conversational dyspnea. no respiratory distress. Resp normal respiratory effort, no retractions, no use of accessory muscles and clear to auscultation bilaterally Cardio regular rate, regular rhythm, S1 normal heart sound and S2 normal heart sound GI normal to inspection, nondistended, normoactive bowel sounds, soft to palpation, non-tender and non-distended Neuro Sensorium / Orientation: awake and alert Assessment & Plan Assessment/Plan (1) Respiratory failure: PLAN: Intubated 08/17, extubated 08/18 Not hypoxic nor hypercapnic, but intubated for airway protection given drug overdose CT concerning for PNA on pip/tazo (2) Drug overdose, intentional: PLAN: Cryptic text sent to family Suspected drug overdose suspected, etiology unclear. Supportive mgmt. Likely multiple medications and alcohol. Head CT negative. Crisis to see when patient is medically stable. [place] slip completed. (3) Pneumonia: PLAN: suspect aspiration given drug overdose. on pip/tazo (4) Lactic acidosis: PLAN: Trended up slightly. Recheck normalized. . I suspect due to respiratory failure, drug overdose, pneumonia No prior h/o seizure. I have discontinued the EEG as I do not feel the patient is experiencing any current seizure activity. No seizure precautions necessary. (5) Hypokalemia: PLAN: Replace. Monitor PLAN: Plan VTE prophylaxis: LMWH. Patient will require pink slip and crisis evaluation once she is medically stable. Transfer to medical floor. Charges/Coding Visit Charges Inpatient E&M: 03837 Subs Hosp L2
--- NOTE | 2024-08-19 09:05 | PN.CC_ITS ---
Objective Data Objective Data Vital Signs: Vital Signs Last response 3 Temperature 37.1 C 08/19/24 07:00 Temperature Source Core 08/19/24 07:00 Pulse Rate 66 08/19/24 07:00 Pulse Strength Normal (2+) 08/18/24 22:00 Respiratory Rate 17 08/19/24 07:00 Respiratory Effort Normal 08/18/24 20:00 Respiratory Depth Normal 08/18/24 20:00 Respiratory Pattern Normal 08/18/24 20:00 Blood Pressure 106/72 08/19/24 07:00 Blood Pressure Mean 83 08/19/24 07:00 Blood Pressure Source Monitor 08/19/24 07:00 Blood Pressure Position Sitting 08/18/24 18:00 Blood Pressure Location Left Arm 08/18/24 18:00 Pulse Ox 95 08/19/24 07:00 Oxygen Delivery Method Room Air 08/19/24 07:00 Oxygen Flow Rate (L/min) 21 08/18/24 07:30 Fraction of Inspired Oxygen (FIO2) 21 08/18/24 09:00 I&O: I&O Last 24 Hours 3 08/18/24 08/18/24 08/19/24 11:59 23:59 11:59 Intake Total 1221.77 / 5711.77 3790.0 / 5711.77 2662.5 / 2662.5 Output Total 1275 / 5750 4100 / 5750 1175 / 1175 Balance -53.23 / -38.23 -310.0 / -38.23 1487.5 / 1487.5 I&O: Total Stay 3 08/17/24 12:43 thru 08/19/24 06:00 Intake Total 42570.09 Output Total 7360 Balance 3203.09 Current Meds Ordered / Administered: Current meds ordered / Administered 3 Generic Name Dose Route Start Last Admin Trade Name Freq PRN Reason Stop Dose Admin Acetaminophen 650 mg 08/18/24 15:59 08/19/24 02:13 Acetaminophen 325 Mg Tablet PO 650 mg Q4H PRN PRN Administration Pain 1-10 or Fever Chlorhexidine Gluconate 1 each 08/18/24 10:00 08/18/24 22:35 Chlorhexidine Gluc 2% Cloth 1 Each Towelette TOPICAL 1 each DAILY REINALDO Administration Enoxaparin Sodium 40 mg 08/19/24 06:00 08/19/24 05:08 Enoxaparin 40 Mg/0.4 Ml Syringe SC 40 mg DAILY@0600 REINALDO Administration Guaifenesin 600 mg 08/18/24 16:00 08/18/24 17:12 Guaifenesin 600 Mg Tablet PO 600 mg BID REINALDO Administration Sodium Chloride 1,000 mls @ 150 mls/hr 08/17/24 16:09 08/19/24 02:37 IV 150 mls/hr .Q6H40M REINALDO Administration Pantoprazole Sodium 40 mg/ 110 mls @ 330 mls/hr 08/17/24 20:00 08/18/24 18:22 Sodium Chloride IV Infused Q24 REINALDO Infusion Piperacillin Sod/Tazobactam 50 mls @ 12.5 mls/hr 08/18/24 06:00 08/19/24 05:07 Sod 3.375 gm/ Sodium Chloride IV 12.5 mls/hr Q8 REINALDO Administration Morphine Sulfate 2 - 4 mg 08/17/24 16:09 08/19/24 04:05 Morphine 2 Mg/Ml Syringe IV 2 mg Q3H PRN PRN Administration Pain Score 6-10 Ondansetron HCl 4 mg 08/17/24 16:09 Ondansetron 4 Mg/2 Ml Vial IV Q8H PRN PRN NAUSEA/VOMITING Sodium Chloride 10 - 40 ml 08/17/24 16:17 08/19/24 05:08 0.9% Saline Lock 10 Ml Syringe IV 20 ml UD PRN Administration SALINE FLUSH Throat Lozenges 1 lozenge 08/18/24 22:02 08/19/24 04:05 Benzocaine/Menthol 1 Lozenge MUCOUS MEM 1 lozenge Q2H PRN PRN Administration SORE THROAT Lab / Micro Data Attestation: I reviewed the patient's lab results. 08/19/24 05:15 08/19/24 05:15 Labs: Laboratory Results - last 24 hr 08/18/24 11:30: Lactic Acid 1.4 08/19/24 05:15: WBC 10.0, RBC 2.98 L, Hgb 9.4 L, Hct 27.6 L, MCV 92.6, MCH 31.5, MCHC 34.1, RDW Std Deviation 43.6, RDW Coeff of Adrianna 12.8, Plt Count 186, MPV 9.7, Immature Gran % (Auto) 0.500, Neut % (Auto) 79.4 H, Lymph % (Auto) 13.8 L, Lamb % (Auto) 4.9, Eos % (Auto) 1.2, Baso % (Auto) 0.2, Absolute Neuts (auto) 8.0 H, Absolute Lymphs (auto) 1.39, Nucleated RBC % 0, Sodium 141, Potassium 3.0 L, Chloride 112 H, Carbon Dioxide 19.4 L, Anion Gap 9, BUN 4, Creatinine 0.65 L, Estim Creat Clear Calc 97.42, Est GFR (MDRD) Non-Af 111, BUN/Creatinine Ratio 6.9 L, Glucose 103 H, Calcium 7.4 L Micro: Microbiology 08/17/24 16:20 Sputum, Induced/Lukens Gram Stain - Final 08/17/24 16:20 Sputum, Induced/Lukens Respiratory Culture - Preliminary Appears to be normal respiratory charissa. Further studies to follow. 08/18/24 17:00 Mucosa - Nasopharyngeal SARS-CoV-2, Influenza & RSV (PCR) - Final Assessment and Plan . Assessment and plan: Assessment and plan: #intentional overdose of medication- norco/tramadol/xanaflex/EtOH #respiratory failure, resolved #elevated lactic acidosis - ?sepsis #aspiration pneumonitis, barely evident on chest CT yesterday but remains symptomatic Plan: agree with transfer to floor B12/folate for ETOH use FU blood/ urine cultures contiunue empiric Abx SI precautions until cleared by Psych Critical Care Time:50 minutes The entirety of this encounter was done via Telemedicine Physical Exam Const alert, oriented x3 and no apparent distress General Appearance: cooperative HEENT Mouth: oral and palatal mucosa normal Neck supple Resp normal respiratory effort Effort and Inspection: actively coughing Psych Speech: normal speech Mood & Affect: flat affect Subjective Subjective Extubated without incident yesterday, has continued with persisting cough/ congestion and febrile overnight
[2024-08-19] MEDS: guaiFENesin 600 MG Tablet PO ×2 (10:01→20:32)
[2024-08-19] MEDS: Potassium Chloride Oral Tablet 20 MEQ 60 MEQ PO (10:05)
[2024-08-19] MEDS: Pantoprazole Sodium 40 MG in 0.9% Normal Saline (100mL MB+) 100 ML 330 MG IV (10:05)
[2024-08-20 02:30] VITALS: BP 137/89; PULSE 62; RESP 16; TEMP 36.5; O2SAT 98
[2024-08-20 04:16] VITALS: BMI 32.5
[2024-08-20] MEDS: Enoxaparin 40 MG/0.4 ML Syringe SC (05:07)
[2024-08-20] MEDS: 0.9% Saline Lock 10 ML Syringe IV (05:07)
[2024-08-20] MEDS: Piperacil/Tazobactam 3.375 GM in 0.9% Normal Saline (50mL MB+) 50 ML IV ×2 (05:07→13:07)
[2024-08-20] MEDS: Acetaminophen 325 MG Tablet 650 MG PO (05:11)
--- NOTE | 2024-08-20 07:25 | PN_ITS ---
Progress Note Medically stable for crisis evaluation.
--- NOTE | 2024-08-20 07:25 | PCM.PN.BLA ---
Progress Note Medically stable for crisis evaluation.
[2024-08-20 08:04] LABS: Absolute Lymphocyte Count 1.19 X10^3/uL (0.83-4.51); Absolute Neutrophil Count 7.5 X10^3/uL (2.0-7.7); Basophil# 0.01 X10^3/uL; Basophil% 0.1 % (0-1); Eosinophil# 0.28 X10^3/uL; Hematocrit 29.5 % (37-47); Hemoglobin 10.2 g/dL (12.0-15.0); Lymphocyte # 1.19 X10^3/ul (0.83-4.51); Lymphocyte % 12.6 % (19-41); Mean Corp Hgb Conc 34.6 g/dL (32-36); Mean Corpuscular Hgb 31.9 pg (27.0-32.0); Mean Corpuscular Volume 92.2 fL (81-99); Mean Platelet Vol. 10.7 fl (6.2-12.0); Monocyte# 0.47 X10^3/uL; NRBC Flagged by Analyzer 0 % (0-5); Neutrophil # 7.48 X10^3/uL (2.7-7.7); Platelet Count 216 K/mm3 (150-450); RBC Distribution Width CV 12.9 % (11.6-14.6); RBC Distribution Width SD 43.2 fl (35.1-43.9); White Blood Count 9.5 K/mm3 (4.4-11.0)
--- NOTE | 2024-08-20 08:18 | PCM.PN.HOSP ---
Subjective Subjective Doing well postextubation, managing her saturations on room air. She still has a cough and rhonchorous breath sounds bilaterally Objective Data Objective Data Vital Signs: Vital Signs Temp Pulse Resp BP Pulse Ox O2 Del Method O2 Flow Rate 97.7 F L 62 16 137/89 H 98 Room Air 21 08/20/24 02:30 08/20/24 02:30 08/20/24 02:30 08/20/24 02:30 08/20/24 02:30 08/20/24 02:30 08/18/24 07:30 FiO2 21 08/18/24 09:00 Oxygen Flow Rate (L/min) 21 Oxygen Delivery Method Room Air Weight: 161 lb 13.109 oz Body Mass Index (BMI) 32.5 Intake & Output: Intake and Output for Last 24 Hours 08/19/24 08/20/24 08/21/24 03:59 03:59 03:59 Intake Total 6841.66 / 7201.66 5267.5 / 5267.5 400 / 400 Output Total 5625 / 5975 1075 / 1075 Balance 1216.66 / 1226.66 4192.5 / 4192.5 400 / 400 Lab / Micro Data 08/20/24 07:35 08/19/24 05:15 Labs: Laboratory Results - last 24 hr 08/20/24 07:35: WBC 9.5, RBC 3.20 L, Hgb 10.2 L, Hct 29.5 L, MCV 92.2, MCH 31.9, MCHC 34.6, RDW Std Deviation 43.2, RDW Coeff of Adrianna 12.9, Plt Count 216, MPV 10.7, Immature Gran % (Auto) 0.300, Neut % (Auto) 79.0 H, Lymph % (Auto) 12.6 L, [place] % (Auto) 5.0, Eos % (Auto) 3.0, Baso % (Auto) 0.1, Absolute Neuts (auto) 7.5, Absolute Lymphs (auto) 1.19, Nucleated RBC % 0 Micro: Microbiology 08/18/24 09:30 Urine Catheter - [place] Urine Culture - Preliminary Culture exhibits no growth. 08/17/24 16:20 Sputum, Induced/Lukens Gram Stain - Final 08/17/24 16:20 Sputum, Induced/Lukens Respiratory Culture - Preliminary Appears to be normal respiratory charissa. Further studies to follow. 08/18/24 17:00 Mucosa - Nasopharyngeal SARS-CoV-2, Influenza & RSV (PCR) - Final Physical Exam Narrative General: Alert, Oriented x3, Cooperative, No apparent distress HEENT: Atraumatic, PERRLA, EOMI, Normocephalic Oral: Moist Mucosa Neck: Supple, No JVD Lungs: Diminished, Normal air movement, bilateral rhonchi, No wheeze, No rales Cardiovascular: Regular rate, Regular Rhythm, Normal S1, Normal S2, No murmurs Abdomen: Soft, Non Tender, Non-Distended, No Hepato-splenomegaly Extremities: No edema, Capillary Refill Less than 3 Seconds Skin: No rashes, No breakdown Musculoskeletal: No Tenderness to Palpation of Joints or Extremities Neurological: No focal neurological deficits, Motor Exam 5/5 strength throughout, Sensory exam intact to light touch and pain Psych/Mental Status: Normal Affect, Appropriate Assessment & Plan Assessment/Plan (1) Respiratory failure: (2) Drug overdose, intentional: (3) Pneumonia: (4) Lactic acidosis: (5) Hypokalemia: PLAN: Plan 1. Acute respiratory failure secondary to intentional overdose while drunk with likely aspiration pneumonia ? She has been sick since Tuesday and started drinking some wine and then feels that she took some of her bedside pills that had been since 2020 & 2021 ? She was extubated on 08/18/2024 and is doing well postextubation ? Continue with broad-spectrum antibiotics when she is discharged can transition to oral pills ? Will recheck her potassium today and replace as indicated ? Lactic acidosis is resolved DVT: Lovenox She is medically stable for crisis evaluation Charges/Coding Visit Charges Inpatient E&M: 36724 Subs Hosp L2
[2024-08-20 08:39] LABS: Anion Gap 11 (5-15); BUN 3 mg/dL (4-19); BUN/Creat Ratio 5.7 RATIO (10-20); Calcium,Total 8.6 mg/dL (7.6-11.0); Carbon Dioxide 18.1 mmol/L (21.0-32.0); Chloride 110 mmol/L (98-108); Creatinine, Serum 0.62 mg/dL (0.70-1.20); EST Glomerular Filtration Rate 112 (>60); Estimated Creatinine Clearance 102.49 ml/min (50-250); Glucose 96 mg/dL (70-99); Potassium 3.7 mmol/L (3.3-5.1); Sodium Level 139 mmol/L (133-145)
--- NOTE | 2024-08-20 08:47 | CASEMGMT ---
Addendum entered by Eleanor Cruz 08/20/24 16:24: Social Work Physician inquired about pt's Augmentin, to ensure pt gets it at [facility]. SW called [facility] RN unit, nobody answers and it goes to voicemail. SW called [facility], they were not sure, gave SW the number for admissions at [facility] to call([phone]). SW called admissions, SW informed to have physician write a paper script. Admissions also asked about a pickup time, SW let them know pickup is 7-8pm. RN faxed paperwork to [facility] to send to [facility]. SW let the physician know, he will create a paper script to go w/pt. CHARLOTTE Lei Addendum entered by Eleanor Cruz 08/20/24 15:59: Social Work [facility] called the ICU and said they can take pt, but they cannot reach [facility]. SW called [facility], spoke w/Matthew, asked them to coordinate w/[facility] and ICU to ensure all paperwork is completed and get pt transferred to [facility]. CHARLOTTE Lei Original Note: Social Work Pt has been medically cleared for assessment by [facility]. SW called [facility], referral made, clinical information faxed. Someone from [facility] to be out to evaluate pt shortly. CHARLOTTE Lei
[2024-08-20] MEDS: guaiFENesin 600 MG Tablet PO (08:57)
[2024-08-20 09:00] VITALS: BP 141/102; PULSE 82; RESP 15; TEMP 36.7; O2SAT 99
--- NOTE | 2024-08-20 14:32 | CHAPLAIN ---
Type of Pastoral Visit _x__ Initial Visit ___ Follow-up Visit ___ On-call Visit ___ General Patient Visit ___ Spiritual Assessment ___ Family Conference ___ Bereavement ___ Rapid Response ___ Code Blue ___ Other (describe below) Pastoral Care Referral From ___ Patient ___ Family ___ Nurse ___ Physician ___ Middle School Spanish Teacher ___ Pressfitter _x__ Other (describe below) Sacrament/Intervention ___ Active listening ___ Anointing ___ Orthodox ___ Bereavement ___ Communion ___ Bing exploration ___ ___ Life review ___ Prayer ___ Reconciliation ___ Sacrament of Sick _x__ Supportive presence ___ Wedding ___ Other (describe below) Pastoral Comments patient is alert and sitting up in the bed; this patient has a sitter present during this visit; pt states that she is fine, has no needs, would like to go home to her family, anticipates with some apprehension about going for crisis meetings, and repeats that she is just fine; denies any support after this episode of attempted overdose
[2024-08-20 15:00] VITALS: BP 115/81; PULSE 79; RESP 15; TEMP 36.6; O2SAT 100
--- NOTE | 2024-08-20 16:03 | DCINST_ITS ---
Discharge Instructions Diet Discharge Diet: No restrictions DC O2, CPAP, BIPAP needs Home O2 Discharge instructions: No Dressing / Incision Discharge Activity: Return to Normal Activity Dressing / Incision Call your doctor if you observe: Fever of 101 or Higher, Shortness of breath, Dizziness, Fainting spells, Swelling in the ankles, Chest pain and Increased palpitations (irregular heartbeat) Follow Up Care Test Results: Test results from this visit will be discussed in further detail at your follow- up appointment, if applicable. Discharge Plan Admission Admit Date/Time: 08/17/24 14:43 Attending Provider: Indra Fontanez Primary Care Provider: José Miguel Weber Consulting Providers: Sanchez Juan; Yaakov Ratliff Discharge Orders/Prescriptions Prescriptions: New amoxicillin-pot clavulanate 875-125 mg tablet 1 tab PO BID Qty: 14 0RF Referrals / Follow Up: José Miguel Weber MD [Primary Care Provider] - José Miguel Weber [[facility]] - Disposition Disposition (needs filled in before D/C Order can be placed): [facility]
--- NOTE | 2024-08-20 16:08 | DS.PCM_ITS ---
Providers Date of Admission: 08/17/24 Primary Care Physician: Dr. José Miguel Weber MD Reason For Visit: DRUG OVERDOSE, ALCOHOL INTOXICATION Diagnosis Discharge Diagnosis (1) Respiratory failure: Status: Acute Code(s): J96.90 - Respiratory failure, unspecified, unspecified whether with hypoxia or hypercapnia (2) Drug overdose, intentional: Status: Acute Code(s): T50.902A - Poisoning by unspecified drugs, medicaments and biological substances, intentional self-harm, initial encounter (3) Pneumonia: Status: Acute Code(s): J18.9 - Pneumonia, unspecified organism (4) Lactic acidosis: Status: Acute Code(s): E87.20 - Acidosis, unspecified (5) Hypokalemia: Status: Acute Code(s): E87.6 - Hypokalemia Medications at Discharge Home Medications amoxicillin 875 mg-potassium clavulanate 125 mg tablet 1 tab PO BID #14 tabs 08/20/24 Hospital Course Operations None Procedures Intubation Summary of Care Provided Minutes Spent on Discharge: 36 Hospital Course: Per HPI: SONI JOHNSON, is a 44 F who presents to the emergency room at [facility] after being brought in by squad after her family received some text messages concerning for mental health and potential suicidal ideation. Patient was found unresponsive on her floor with multiple medications around her. It is unclear how much medication she took or which medication she took. Patient has a history of mental illness but according to of her family members has never tried to intentionally overdose in the past. Evaluation of the patient in the emergency room revealed her to be responsive to deep painful stimulation only, decision was made to intubate the patient for airway protection based on a blunted gag reflex and a GCS of 8. Basic blood work showed a hemoglobin of 11.9, normal creatinine, normal sodium and potassium. Lactic acid was elevated at 2.7, alcohol level was elevated at 181. Urine toxicology was positive for cannabinoids, test was negative, CT of the brain showed no acute findings. Patient was placed on propofol for sedation. Patient was given IV fluids in the emergency room and will be admitted to ICU for further care. Hospital Course: 1. Acute respiratory failure secondary to intentional overdose while inebriated with likely aspiration pneumonia?44-year-old female presented to the hospital as an intentional overdose. She started drinking and blacked out. She was found on the floor with multiple pill bottles around her, opiates and muscle relaxers among others, her had brought in her medications to be destroyed by our pharmacy. None of these medications were recent with the prescriptions being from 2019 and 2020. She was found to have a blood alcohol level of 181 on admission with a lactic acid of 2.7. She was intubated because she was obtunded to protect her airway. CT scan demonstrated right lower lobe groundglass opacity so she was also started on Zosyn. She does have some rhonchorous breath sounds but is stable on room air. She was extubated on 08/18/2024 and has been doing well not requiring any oxygen. She was evaluated by crisis today and will be transferred to a psychiatric hospital. Will continue with Augmentin 875-125 mg twice daily for 7 days to complete course. Physical Exam Narrative General: Alert, Oriented x3, Cooperative, No apparent distress HEENT: Atraumatic, PERRLA, EOMI, Normocephalic Oral: Moist Mucosa Neck: Supple, No JVD Lungs: Diminished, Normal air movement, bilateral rhonchi, No wheeze, No rales Cardiovascular: Regular rate, Regular Rhythm, Normal S1, Normal S2, No murmurs Abdomen: Soft, Non Tender, Non-Distended, No Hepato-splenomegaly Extremities: No edema, Capillary Refill Less than 3 Seconds Skin: No rashes, No breakdown Musculoskeletal: No Tenderness to Palpation of Joints or Extremities Neurological: No focal neurological deficits, Motor Exam 5/5 strength throughout, Sensory exam intact to light touch and pain Psych/Mental Status: Normal Affect, Appropriate Weight / BMI Weight Weight: 161 lb 13.109 oz Body Mass Index (BMI) 32.5 ABG / Lab / Microbiology Data 08/20/24 07:35 08/20/24 07:35 Laboratory: Laboratory Results - last 24 hr 08/20/24 07:35: WBC 9.5, RBC 3.20 L, Hgb 10.2 L, Hct 29.5 L, MCV 92.2, MCH 31.9, MCHC 34.6, RDW Std Deviation 43.2, RDW Coeff of Adrianna 12.9, Plt Count 216, MPV 10.7, Immature Gran % (Auto) 0.300, Neut % (Auto) 79.0 H, Lymph % (Auto) 12.6 L, [place] % (Auto) 5.0, Eos % (Auto) 3.0, Baso % (Auto) 0.1, Absolute Neuts (auto) 7.5, Absolute Lymphs (auto) 1.19, Nucleated RBC % 0, Sodium 139, Potassium 3.7, Chloride 110 H, Carbon Dioxide 18.1 L, Anion Gap 11, BUN 3 L, Creatinine 0.62 L, Estim Creat Clear Calc 102.49, Est GFR (MDRD) Non-Af 112, BUN/Creatinine Ratio 5.7 L, Glucose 96, Calcium 8.6 Microbiology: Microbiology 08/18/24 09:55 Blood Culture (Wb) - Anticubital Right Blood Culture - Preliminary No growth in 48 hours. 08/18/24 09:15 Blood Culture (Wb) - Central Line Blood Culture - Preliminary No growth in 48 hours. 08/18/24 09:30 Urine Catheter - [place] Urine Culture - Final Culture exhibits no growth. 08/17/24 16:20 Sputum, Induced/[place] Gram Stain - Final 08/17/24 16:20 Sputum, Induced/[place] Respiratory Culture - Preliminary GPC Poss Enterococcus sp 08/18/24 17:00 Mucosa - Nasopharyngeal SARS-CoV-2, Influenza & RSV (PCR) - Final Radiography Diagnostic Testing: Radiology Impression Chest X-Ray 08/17/24 13:25 IMPRESSION: 1. ET tube is in the right main bronchus. Retraction is recommended. 2. Pulmonary venous congestion. Reading Location: [facility] D/C Instructions Discharge Diet: No restrictions Call your doctor if you observe: Fever of 101 or Higher, Shortness of breath, Dizziness, Fainting spells, Swelling in the ankles, Chest pain and Increased palpitations (irregular heartbeat) DC O2, CPAP, BIPAP Needs Home O2 Discharge instructions: No Meaningful Use Info Meaningful Use Meaningful Use Diagnoses (Choose all that apply): None applicable Ischemic Stroke Statin Dosing Therapy Reference: STATIN DOSE THERAPY REFERENCE: * Patients > 75 years receive moderate or high dose statin therapy. * Patients 75 years or YOUNGER should receive HIGH intensity statin dose unless contraindicated. You will be required to document reason for non-treatment if statin daily dose does not meet guidelines. HIGH DOSE STATIN THERAPY DAILY Atorvastatin > than or = to 40 mg Rosuvastatin > than or = to 20 mg Amlodipine + Atorvastatin > than or = to 2.5/40 mg Ezetimibe + Simvastatin 10/80 mg Simvastatin 80mg Discharge Plan Admission Admit Date/Time: 08/17/24 14:43 Attending Provider: Indra Fontanez Primary Care Provider: José Miguel Weber Consulting Providers: Sanchez Juan; Yaakov Ratliff Discharge Orders/Prescriptions Prescriptions: New amoxicillin-pot clavulanate 875-125 mg tablet 1 tab PO BID Qty: 14 0RF Referrals / Follow Up: José Miguel Weber MD [Primary Care Provider] - José Miguel Weber [[facility]] - Disposition Disposition (needs filled in before D/C Order can be placed): Psychiatric Hospital or Unit Charges/Coding Visit Charges Inpatient E&M: 38179 Disch Hosp >30min
--- NOTE | 2024-08-20 16:33 | NURSING ---
patient accepted at [facility] [address] report called to MAIDSYN Isbell at this time
[2024-08-20 20:15] VITALS: BP 144/89; PULSE 68; RESP 20; TEMP 36.9; O2SAT 98
== END 2024-08-20 21:35 | DRG 917 ==
LOC: ED 14:22 → ICU 14:56
PROVIDERS: Admitting Provider Internal Medicine; Emergency Provider Emergency Medicine; PCP Family Medicine; Visit Provider Family Medicine
DX: T50.902A Poisoning by unspecified drugs, medicaments and biological substances, intentional self-harm, initial encounter (principal); J96.90 Respiratory failure, unspecified, unspecified whether with hypoxia or hypercapnia; J69.0 Pneumonitis due to inhalation of food and vomit; J18.9 Pneumonia, unspecified organism; E87.20 Acidosis, unspecified; F32.9 Major depressive disorder, single episode, unspecified; F10.129 Alcohol abuse with intoxication, unspecified; I95.9 Hypotension, unspecified; F17.210 Nicotine dependence, cigarettes, uncomplicated; E87.6 Hypokalemia; T40.602A Poisoning by unspecified narcotics, intentional self-harm, initial encounter
CPT/HCPCS: 31500; 31720; 36556; 36600; 51702; 70450; 71045; 71250; 80048; 80076; 80143; 80179; 80307; 81001; 82077; 82550; 82803; 83605; 83690; 84478; 84484; 84703; 85025; 85610; 85730; 87070; 87077; 87205; 93005; 94002; 94003; 94660; 94668; 97162; 99252; 99285; 99406; A4216; G0463